=== PATIENT | male | born 1930 | race Caucasian/White ===

== ENCOUNTER 2016-10-23 20:12 | Inpatient (IN) | payer MEDICARE, SELFPAY ==
[2016-10-23 20:54] LABS: AUTOMATED EOSINOPHIL 0.1 % (0-5); AUTOMATED LYMPH 8.1 % (17-44); AUTOMATED MONOCYTE 8.2 % (3-10); AUTOMATED NEUTROPHIL 82.6 % (45-76); MPV 8.6 fL (7.4-10.4)
--- NOTE | 2016-10-23 20:56 | DIRPT ---
CLINICAL DATA: Cough, shortness of breath for 5 days. Sharp left chest pain. EXAM: CHEST 2 VIEW COMPARISON: 10/23/2016 FINDINGS: Peribronchial thickening. Heart is upper limits normal in size. Previously seen possible early infiltrate at the left base has improved. No confluent opacity or effusion. No acute bony abnormality. Bilateral shoulder replacements noted. IMPRESSION: Bronchitic changes. Electronically Signed By: Vadim Aguila M.D. On: 10/23/2016 20:54
[2016-10-23 20:59] LABS: PARTIAL THROMB. TIME 30.3 SEC (22-35); PT-INR 1.1
[2016-10-23 21:06] LABS: BLOOD UREA NITROGEN 37 MG/DL (9-20); CALC CORRECTED 8.6 MG/DL (8.4-10.2); CALCIUM 8.5 MG/DL (8.4-10.2); CALCULATED OSMOLALITY 264 MOs/Kg (270-290); CHLORIDE 94 mEq/L (98-107); GLUCOSE 141 MG/DL (70-99); SODIUM LEVEL 131 mEq/L (137-146); TOTAL PROTEIN 7.3 G/DL (6.3-8.2)
[2016-10-23] MEDS ORDERED: CEFTRIAXONE 1 GM in D5W 100 ML IV ONE (21:42)
[2016-10-23] MEDS ORDERED: AZITHROMYCIN 500 MG in D5W 250 ML IV ONE (21:42)
[2016-10-23] MEDS ORDERED: NS 500 ML IV ONE (21:43)
[2016-10-23] MEDS ORDERED: Albuterol/Ipratropium Neb 3 ML NEB NEB ONE (21:43)
[2016-10-23] MEDS ORDERED: MORPHINE 4 MG/ML INJECTION IV ONE (21:50)
[2016-10-23] MEDS ORDERED: PROMETHAZINE 25 MG/ML VIAL IV ONE (21:50)
[2016-10-23 22:20] LABS: ALLEN'S TEST PASS; BEb 0.3 (+/- 2); TCO2 27.4 MMOL/L (23-27)
[2016-10-23 22:21] LABS: ABG Draw Site Right Radial
--- NOTE | 2016-10-23 23:06 | EDPRACDOC ---
- General Information Mode Of Arrival: Car - History of Present Illness Onset: 3 DAYS HPI: PT PRESENTS TODAY WITH 3 DAYS OF COUGH/CONGESTION, WEAKNESS AND SUBJECTIVE FEVER AT HOME. PT SEEN DR. CHOPRA TODAY AND GIVEN KENALOG INJECTION AND LEVAQUIN. PT STATES HE WENT HOME AND WAS TOO WEAK TO WALK. PT STATES CHEST WALL PAIN, FATIGUE, MAYNARD, AND NAUSEA. Shortness of Breath: Moderate Relevant History: Reports: COPD, Heart Failure (CHF) Cough: Reports: Non-productive Ear Symptoms: Reports: None SOB Worsens with: Reports: Exertion, Coughing, MAYNARD SOB Improves with: Reports: Rest Associated Signs and symptoms: Reports: Cough, Fever, Nausea <Megan Pearl - Last Filed: 10/23/16 23:04> <Gilbert Maynard - Last Filed: 10/23/16 23:12> - General Information Chief Complaint: Chest Pain Stated Complaint: CHEST PAIN; SHOB Time Seen by Provider: 10/23/16 21:27 Home Medications: Home Medications Gabapentin [Neurontin] 300 mg PO TID 10/25/12 Terazosin [Hytrin] 1 mg PO HS 05/03/14 Ferrous Sulfate [Iron] 325 mg PO BID 07/05/14 HydrALAZINE (Cardiovascular) [Apresoline] 50 mg PO QID 07/05/14 POTASSIUM CHLORIDE Tablet [K-DUR 20 mEq Tablet*] 20 meq PO DAILY 07/05/14 Fluticasone/Salmeterol [Advair 500-50 Diskus] 1 inh INH BID PRN 08/20/14 CloNIDine (Antihypertensive) [Catapres] 0.3 mg PO BID 12/31/14 Pantoprazole Sodium [Protonix] 40 mg PO DAILY 01/30/15 Insulin Aspart [Novolog] 0 units SQ .SLIDING SCALE WMEAL 07/11/15 Metoprolol Tartrate [Lopressor] 75 mg PO BID 07/11/15 Omeprazole 20 mg PO BID 07/11/15 Tamsulosin HCl [Flomax] 0.4 mg PO DAILY 07/11/15 Dutasteride [Avodart] 0.5 mg PO DAILY #30 capsule 07/16/15 Furosemide [Lasix] 40 mg PO BID #120 tab 07/16/15 Ascorbic Acid [Vitamin C] 1,000 mg PO DAILY 10/23/16 Insulin Glargine,Hum.rec.anlog [Toujeo Solostar] 12 unit SQ QAM 10/23/16 Levofloxacin [Levaquin] 750 mg PO DAILY 10/23/16 Lorazepam 0.5 mg PO QHS PRN 10/23/16 Morphine Sulfate [Morphine Sulfate ER] 15 mg PO TID 10/23/16 Vitamin E Mixed [Vitamin E] 1,000 unit PO DAILY 10/23/16 Allergies/Adverse Reactions: Allergies Allergy/AdvReac Type Severity Reaction Status Date / Time Penicillins Allergy Mild Nausea/Vomi Verified 07/11/15 07:17 [facility] Past Medical History - History Reviewed Yes Nurses notes reviewed and agree except as marked - Patient Medical History Neurological History: Denies: Cerebrovascular Accident Cardiac History: Reports: Atrial Fibrillation, Hypertension (HCVD), Congestive Heart Failure (diastolic dysfunction), Cardiac Catheterization (6 TIMES), Hypercholesterolemia, Valvular Heart Disease (SEVERE AORTIC STENOSIS) Respiratory History: Reports: Cough, Pneumonia, Emphysema, Pulmonary Embolism. Denies: Asthma, COPD GI/ History: Reports: Renal Disease (CKD-III), Gastroesophageal Reflux Musculoskeletal History: Reports: Arthritis, Osteoarthritis Psychological History: Reports: Anxiety. Denies: Substance Use Disorder Systemic History: Reports: Anemia (chronic disease), Diabetes. Denies: Cancer Surgical History: Reports: Angioplasty, Cardiac Catheterization (6 TIMES), Hernia Surgery (UMBILICAL & INGUINAL), Other (prostate x2,back surgery,left tympanoplasty, bilat. shoulder replacements) - Family Medical History Reports: Hypertension (Father), Diabetes (Father), Stroke (FATHER). Denies: Cancer, Cardiac Disorders - Social Medical History Smoking Status: Never smoker Social History: Denies: Substance Use Disorder <Megan Pearl - Last Filed: 10/23/16 23:04> EDM Review of Systems - Review of Systems ROS Negative Except as Marked: Yes All systems reviewed and were negative except as marked Constitutional: Fever, Fatigue, Weakness Eyes: No Symptoms Reported Ears: No Symptoms Reported Throat: No Symptoms Reported Nose: No Symptoms Reported Respiratory: Cough, Shortness of Breath, Wheezing Cardiovascular: No Symptoms Reported Gastrointestinal: Nausea Neurological: No Symptoms Reported Musculoskeletal: Chestwall Integumentary: No Symptoms Reported <Megan Pearl - Last Filed: 10/23/16 23:04> - Physical Exam Constitutional: Alert (Awake), No apparent distress Oriented to: Time, Person, Place Last recorded Vital Signs: Last Vital Signs Temp 98.4 F 10/23/16 20:20 Pulse 73 10/23/16 22:26 Resp 16 10/23/16 22:26 BP 187/83 H 10/23/16 22:26 Pulse Ox 97 10/23/16 22:26 Oxygen Pulse Oxygen Saturation 97 O2 Device Nasal Cannula Oxygen Flow Rate 2 Fraction of Inspired Oxygen ( FIO2) - HEENT Head: Normal Eye Exam: Normal Neck: Normal, Denies Pain, Midline - Respiratory/Cardiovascular Respiratory: Diminished, Rhonchi Cardiovascular: Irregular, Systolic murmur - GI Auscultation: Normal Palpation: Normal Tenderness: Non tender - Musculoskeletal Back: Normal Extremities: Normal - Integumentary Skin: Normal Lymphatics: Normal - Neurologic Cerebellar: Normal Mood Description: Normal Thought: Coherent Perception: Normal <Megan Pearl - Last Filed: 10/23/16 23:04> - Physical Exam Last recorded Vital Signs: Last Vital Signs Temp 98.4 F 10/23/16 20:20 Pulse 73 10/23/16 22:26 Resp 16 10/23/16 22:26 BP 187/83 H 10/23/16 22:26 Pulse Ox 97 10/23/16 22:26 Oxygen Pulse Oxygen Saturation 97 O2 Device Nasal Cannula Oxygen Flow Rate 2 Fraction of Inspired Oxygen ( FIO2) <Gilbert Maynard - Last Filed: 10/23/16 23:12> ED SOB MDM - Re-evaluation Re-evaluation 1 Re-evaluation Time: 23:07 Re-evaluation: PT FEELING BETTER AFTER MULTIPLE MEDICATIONS AND IS NOW RESTING. NOTED HYPOXIA. - Results Result Diagrams: 10/23/16 20:32 10/23/16 20:32 Results: WBC 4.2 xk/uL (3.8-10.8) 10/23/16 20:32 RBC 3.27 xM/uL (4.70-6.10) L 10/23/16 20:32 Hgb 10.7 g/dL (14.0-18.0) L 10/23/16 20:32 Hct 30.8 % (42-52) L 10/23/16 20:32 MCV 94 fL (80-94) 10/23/16 20:32 MCH 32.8 pg (27-32) H 10/23/16 20:32 MCHC 34.8 g/dl (33-36) 10/23/16 20:32 RDW 13.7 % (11.5-14.5) 10/23/16 20:32 Plt Count 111 xk/uL (130-400) L 10/23/16 20:32 MPV 8.6 fL (7.4-10.4) 10/23/16 20:32 Neut % (Auto) 82.6 % (45-76) H 10/23/16 20:32 Lymph % (Auto) 8.1 % (17-44) L 10/23/16 20:32 Moca % (Auto) 8.2 % (3-10) 10/23/16 20:32 Eos % (Auto) 0.1 % (0-5) 10/23/16 20:32 Baso % (Auto) 1.0 % (0-2) 10/23/16 20:32 Absolute Neuts (auto) 3.44 xk/uL (1.7-8.2) 10/23/16 20:32 Absolute Lymphs (auto) 0.34 xk/uL (0.65-4.75) L 10/23/16 20:32 PT 11.6 SEC (9.2-11.2) H 10/23/16 20:32 INR 1.1 10/23/16 20:32 APTT 30.3 SEC (22-35) 10/23/16 20:32 Puncture Site Right radial 10/23/16 22:17 pH 7.370 pH UNITS (7.35-7.45) 10/23/16 22:17 pCO2 45.0 mmHg (35-45) 10/23/16 22:17 pO2 54.0 mmHg (80-100) L 10/23/16 22:17 HCO3 26.0 MMOL/L (22-26) 10/23/16 22:17 Total CO2 27.4 MMOL/L (23-27) H 10/23/16 22:17 Base Excess 0.3 (+/- 2) 10/23/16 22:17 FiO2 % 21 10/23/16 22:17 Specimen Drawn By Rakma 10/23/16 22:17 Sodium 131 mEq/L (137-146) L 10/23/16 20:32 Potassium 3.7 mEq/L (3.5-5.1) 10/23/16 20:32 Chloride 94 mEq/L (98-107) L 10/23/16 20:32 Carbon Dioxide 24 mMOL/L (22-33) 10/23/16 20:32 Anion Gap 17 mEq/L (8-16) H 10/23/16 20:32 BUN 37 MG/DL (9-20) H 10/23/16 20:32 Creatinine 1.80 MG/DL (0.66-1.25) H 10/23/16 20:32 Estimated GFR (MDRD) 36 mL/min (>=60) L 10/23/16 20:32 Glucose 141 MG/DL (70-99) H 10/23/16 20:32 Calculated Osmolality 264 MOs/Kg (270-290) L 10/23/16 20:32 Calcium 8.5 MG/DL (8.4-10.2) 10/23/16 20:32 Corrected Calcium 8.6 MG/DL (8.4-10.2) 10/23/16 20:32 Total Bilirubin 0.7 MG/DL (0.2-1.3) 10/23/16 20:32 AST 28 IU/L (17-59) 10/23/16 20:32 ALT 22 IU/L (21-72) 10/23/16 20:32 Alkaline Phosphatase 93 IU/L (50-160) 10/23/16 20:32 Troponin I 0.03 ng/mL (<.04) 10/23/16 20:32 Iga-O-Ilprnicaoll Pept 86054 pg/mL (0-1800) H 10/23/16 20:32 Total Protein 7.3 G/DL (6.3-8.2) 10/23/16 20:32 Albumin 3.9 G/DL (3.5-5.0) 10/23/16 20:32 Lab Results 10/23/16 10/23/16 10/23/16 22:17 20:32 20:32 WBC 4.2 RBC 3.27 L Hgb 10.7 L Hct 30.8 L MCV 94 MCH 32.8 H MCHC 34.8 RDW 13.7 Plt Count 111 L MPV 8.6 Neut % (Auto) 82.6 H Lymph % (Auto) 8.1 L Moca % (Auto) 8.2 Eos % (Auto) 0.1 Baso % (Auto) 1.0 Absolute Neuts (auto) 3.44 Absolute Lymphs (auto) 0.34 L PT 11.6 H INR 1.1 APTT 30.3 Puncture Site Right radial pH 7.370 pCO2 45.0 pO2 54.0 L HCO3 26.0 Total CO2 27.4 H Base Excess 0.3 FiO2 % 21 Specimen Drawn By Rakma Sodium Potassium Chloride Carbon Dioxide Anion Gap BUN Creatinine Estimated GFR (MDRD) Glucose Calculated Osmolality Calcium Corrected Calcium Total Bilirubin AST ALT Alkaline Phosphatase Troponin I Sum-Q-Qnnpoooauvi Pept Total Protein Albumin 10/23/16 20:32 WBC RBC Hgb Hct MCV MCH MCHC RDW Plt Count MPV Neut % (Auto) Lymph % (Auto) Moca % (Auto) Eos % (Auto) Baso % (Auto) Absolute Neuts (auto) Absolute Lymphs (auto) PT INR APTT Puncture Site pH pCO2 pO2 HCO3 Total CO2 Base Excess FiO2 % Specimen Drawn By Sodium 131 L Potassium 3.7 Chloride 94 L Carbon Dioxide 24 Anion Gap 17 H BUN 37 H Creatinine 1.80 H Estimated GFR (MDRD) 36 L Glucose 141 H Calculated Osmolality 264 L Calcium 8.5 Corrected Calcium 8.6 Total Bilirubin 0.7 AST 28 ALT 22 Alkaline Phosphatase 93 Troponin I 0.03 Uxn-N-Fnoramjatfb Pept 81440 H Total Protein 7.3 Albumin 3.9 - EKG EKG #1 EKG Time: 20:25 -: Yes EKG interpreted by me Rate: bpm: 92 Rhythm: Afib Block: LBBB Hypertrophy: None ST: Normal <Megan Pearl - Last Filed: 10/23/16 23:04> - Results Result Diagrams: 10/23/16 20:32 10/23/16 20:32 Results: WBC 4.2 xk/uL (3.8-10.8) 10/23/16 20:32 RBC 3.27 xM/uL (4.70-6.10) L 10/23/16 20:32 Hgb 10.7 g/dL (14.0-18.0) L 10/23/16 20:32 Hct 30.8 % (42-52) L 10/23/16 20:32 MCV 94 fL (80-94) 10/23/16 20:32 MCH 32.8 pg (27-32) H 10/23/16 20:32 MCHC 34.8 g/dl (33-36) 10/23/16 20:32 RDW 13.7 % (11.5-14.5) 10/23/16 20:32 Plt Count 111 xk/uL (130-400) L 10/23/16 20:32 MPV 8.6 fL (7.4-10.4) 10/23/16 20:32 Neut % (Auto) 82.6 % (45-76) H 10/23/16 20:32 Lymph % (Auto) 8.1 % (17-44) L 10/23/16 20:32 Moca % (Auto) 8.2 % (3-10) 10/23/16 20: Eos % (Auto) 0.1 % (0-5) 10/23/16 20:32 Baso % (Auto) 1.0 % (0-2) 10/23/16 20:32 Absolute Neuts (auto) 3.44 xk/uL (1.7-8.2) 10/23/16 20:32 Absolute Lymphs (auto) 0.34 xk/uL (0.65-4.75) L 10/23/16 20:32 PT 11.6 SEC (9.2-11.2) H 10/23/16 20:32 INR 1.1 10/23/16 20:32 APTT 30.3 SEC (22-35) 10/23/16 20:32 Puncture Site Right radial 10/23/16 22:17 pH 7.370 pH UNITS (7.35-7.45) 10/23/16 22:17 pCO2 45.0 mmHg (35-45) 10/23/16 22:17 pO2 54.0 mmHg (80-100) L 10/23/16 22:17 HCO3 26.0 MMOL/L (22-26) 10/23/16 22:17 Total CO2 27.4 MMOL/L (23-27) H 10/23/16 22:17 Base Excess 0.3 (+/- 2) 10/23/16 22:17 FiO2 % 21 10/23/16 22:17 Specimen Drawn By Rakma 10/23/16 22:17 Sodium 131 mEq/L (137-146) L 10/23/16 20:32 Potassium 3.7 mEq/L (3.5-5.1) 10/23/16 20:32 Chloride 94 mEq/L (98-107) L 10/23/16 20:32 Carbon Dioxide 24 mMOL/L (22-33) 10/23/16 20:32 Anion Gap 17 mEq/L (8-16) H 10/23/16 20:32 BUN 37 MG/DL (9-20) H 10/23/16 20:32 Creatinine 1.80 MG/DL (0.66-1.25) H 10/23/16 20:32 Estimated GFR (MDRD) 36 mL/min (>=60) L 10/23/16 20:32 Glucose 141 MG/DL (70-99) H 10/23/16 20:32 Calculated Osmolality 264 MOs/Kg (270-290) L 10/23/16 20:32 Calcium 8.5 MG/DL (8.4-10.2) 10/23/16 20:32 Corrected Calcium 8.6 MG/DL (8.4-10.2) 10/23/16 20:32 Total Bilirubin 0.7 MG/DL (0.2-1.3) 10/23/16 20:32 AST 28 IU/L (17-59) 10/23/16 20:32 ALT 22 IU/L (21-72) 10/23/16 20:32 Alkaline Phosphatase 93 IU/L (50-160) 10/23/16 20:32 Troponin I 0.03 ng/mL (<.04) 10/23/16 20:32 Dwp-F-Susdbxynduf Pept 05923 pg/mL (0-1800) H 10/23/16 20:32 Total Protein 7.3 G/DL (6.3-8.2) 10/23/16 20:32 Albumin 3.9 G/DL (3.5-5.0) 10/23/16 20:32 Lab Results 10/23/16 10/23/16 10/23/16: 20:32 20:32 WBC 4.2 RBC 3.27 L Hgb 10.7 L Hct 30.8 L MCV 94 MCH 32.8 H MCHC 34.8 RDW 13.7 Plt Count 111 L MPV 8.6 Neut % (Auto) 82.6 H Lymph % (Auto) 8.1 L Moca % (Auto) 8.2 Eos % (Auto) 0.1 Baso % (Auto) 1.0 Absolute Neuts (auto) 3.44 Absolute Lymphs (auto) 0.34 L PT 11.6 H INR 1.1 APTT 30.3 Puncture Site Right radial pH 7.370 pCO2 45.0 pO2 54.0 L HCO3 26.0 Total CO2 27.4 H Base Excess 0.3 FiO2 % 21 Specimen Drawn By Rakma Sodium Potassium Chloride Carbon Dioxide Anion Gap BUN Creatinine Estimated GFR (MDRD) Glucose Calculated Osmolality Calcium Corrected Calcium Total Bilirubin AST ALT Alkaline Phosphatase Troponin I Dns-A-Ftxavombqdg Pept Total Protein Albumin 10/23/16 20:32 WBC RBC Hgb Hct MCV MCH MCHC RDW Plt Count MPV Neut % (Auto) Lymph % (Auto) Moca % (Auto) Eos % (Auto) Baso % (Auto) Absolute Neuts (auto) Absolute Lymphs (auto) PT INR APTT Puncture Site pH pCO2 pO2 HCO3 Total CO2 Base Excess FiO2 % Specimen Drawn By Sodium 131 L Potassium 3.7 Chloride 94 L Carbon Dioxide 24 Anion Gap 17 H BUN 37 H Creatinine 1.80 H Estimated GFR (MDRD) 36 L Glucose 141 H Calculated Osmolality 264 L Calcium 8.5 Corrected Calcium 8.6 Total Bilirubin 0.7 AST 28 ALT 22 Alkaline Phosphatase 93 Troponin I 0.03 Ydl-Q-Iemtieczqvl Pept 94846 H Total Protein 7.3 Albumin 3.9 <Gilbert Maynard - Last Filed: 10/23/16 23:12> - Departure Disposition: Admit IP To This Hospital <Megan Pearl - Last Filed: 10/23/16 23:04> - Departure Disposition: Admit IP To This Hospital Decision to Admit Time: 23:11 Decision to admit date: 10/23/16 Decision to admit: from ED - Physician Consulted Hospitalist Time Called: 23:12 Provider Called: Arya Friedman Time Machine Setter Supervisor Returned Call: 23:12 <Gilbert Maynard - Last Filed: 10/23/16 23:12> - Departure Condition: Stable Final Diagnosis: Acute respiratory failure with hypoxia, Renal insufficiency Atrial fibrillation Qualifiers: Atrial fibrillation type: chronic Qualified Code(s): I48.2 - Chronic atrial fibrillation Pneumonia Qualifiers: Pneumonia type: due to unspecified organism Laterality: left Lung location: lower lobe of lung Qualified Code(s): J18.1 - Lobar pneumonia, unspecified organism
[2016-10-23] MEDS ORDERED: Albuterol/Ipratropium Neb 3 ML NEB NEB PRN (23:53)
--- NOTE | 2016-10-24 00:01 | HISTPHYS ---
- Chief Complaint sob, cough - History of Present Illness 86 yowm brought to emergency room early on today for evaluation worsening difficulties breathing. reports that Mr. robles has developed chest cold about 7 days ago. He has initially had cough productive of small amount of foamy sputum. Over the ensuing days he has developed progressive worsening dyspnea chest tightness and persistent wheezing. He has developed cough productive thick yellowish greenish sputum. His appetite and p.o. intake have declined he has been feeling profoundly weak and very fatigued. Given persistence of his symptoms he has finally decided to see PCP and was started on antibiotics. In early afternoon his care condition has worsened patient has found himself gasping for air and decided to be evaluated emergency room. Upon arrival in ED patient was in severe respiratory distress hypoxic tachypneic and tachycardic. His PaO2 was 54, chest x-ray showed left-sided pneumonia and medical consultation was phoned in for inpatient treatment. - Medical History Cardiac History: Reports: Atrial Fibrillation, Hypertension (HCVD), Congestive Heart Failure (diastolic dysfunction), Cardiac Catheterization (6 TIMES), Hypercholesterolemia, Valvular Heart Disease (SEVERE AORTIC STENOSIS) Respiratory History: Reports: Cough, Pneumonia, Emphysema, Pulmonary Embolism. Denies: Asthma, COPD GI/ History: Reports: Renal Disease (CKD-III), Gastroesophageal Reflux, BPH Musculoskeletal History: Reports: Arthritis, Osteoarthritis Systemic History: Reports: Anemia (chronic disease), Diabetes. Denies: Cancer Neurological History: Reports: Dementia. Denies: Cerebrovascular Accident Psychological History: Reports: Anxiety. Denies: Substance Use Disorder - Surgical History Reports: Appendectomy, Cholecystectomy, Angioplasty, Cardiac Catheterization (6 TIMES), Hernia Surgery (UMBILICAL & INGUINAL), Other (prostate x2,back surgery, left tympanoplasty, bilat. shoulder replacements) - Medictions/Allergies Allergies Penicillins Allergy (Mild, Verified 07/11/15 07:17) Nausea/Vomiting Current Medication List: Reviewed Home Medications Gabapentin [Neurontin] 300 mg PO TID 10/25/12 Terazosin [Hytrin] 1 mg PO HS 05/03/14 Ferrous Sulfate [Iron] 325 mg PO BID 07/05/14 HydrALAZINE (Cardiovascular) [Apresoline] 50 mg PO QID 07/05/14 POTASSIUM CHLORIDE Tablet [K-DUR 20 mEq Tablet*] 20 meq PO DAILY 07/05/14 Fluticasone/Salmeterol [Advair 500-50 Diskus] 1 inh INH BID PRN 08/20/14 CloNIDine (Antihypertensive) [Catapres] 0.3 mg PO BID 12/31/14 Pantoprazole Sodium [Protonix] 40 mg PO DAILY 01/30/15 Insulin Aspart [Novolog] 0 units SQ .SLIDING SCALE WMEAL 07/11/15 Metoprolol Tartrate [Lopressor] 75 mg PO BID 07/11/15 Omeprazole 20 mg PO BID 07/11/15 Tamsulosin HCl [Flomax] 0.4 mg PO DAILY 07/11/15 Dutasteride [Avodart] 0.5 mg PO DAILY #30 capsule 07/16/15 Furosemide [Lasix] 40 mg PO BID #120 tab 07/16/15 Ascorbic Acid [Vitamin C] 1,000 mg PO DAILY 10/23/16 Insulin Glargine,Hum.rec.anlog [Toujeo Solostar] 12 unit SQ QAM 10/23/16 Levofloxacin [Levaquin] 750 mg PO DAILY 10/23/16 Lorazepam 0.5 mg PO QHS PRN 10/23/16 Morphine Sulfate [Morphine Sulfate ER] 15 mg PO TID 10/23/16 Vitamin E Mixed [Vitamin E] 1,000 unit PO DAILY 10/23/16 - Family History Reports: Hypertension (Father), Diabetes (Father), Stroke (FATHER). Denies: Cancer, Cardiac Disorders - Social History Travel Outside of [place] in the Last 3 Months?: No Lives: With Family Smoking Status: Never smoker Social History: Denies: Substance Use Disorder - Review of Systems Constitutional: Chills, Fever, Diaphoresis, Fatigue, Loss of Appetite, Weakness , Weight loss Eyes: No Symptoms Reported Ears: No Symptoms Reported Nose: No Symptoms Reported Mouth: No Symptoms Reported Throat/Neck: No Symptoms Reported Respiratory: Brassy Cough, Shortness of Breath, Wheezing, Sputum, Pleurisy, Dyspnea Cardiovascular: Palpitations Gastrointestinal: Nausea, Constipation, Heartburn Genitourinary: Nocturia Neurological: Gait Difficulty, Numbness, Weakness Musculoskeletal:: Arthritis Integumentary: No Symptoms Reported Allergic/Immunologic: No Symptoms Reported Hematologic: No Symptoms Reported Endocrine: No Symptoms Reported Psychiatric: No Symptoms Reported - Physical Exam Vital Signs: Initial Vitals Temperature 98.4 F 10/23/16 20:20 Pulse Rate 87 10/23/16 20:20 Respiratory Rate 18 10/23/16 20:20 Blood Pressure 178/78 10/23/16 20:20 Pulse Oxygen Saturation 91 10/23/16 20:20 Constitutional: Confused, Distress, Restless, Other (Visibly short of breath, unable to answer questions in full sentences) Oriented to: Time, Person, Place - HEENT Head: Normal Eye: Normal Oropharynx: Normal ENT EAC: Normal TMJ: Normal Nose: No Symptoms Reported Respiratory: Accessory Muscle Use, Diminished, Rhonchi, Tachypnea, Wheezes Cardiovascular: Normal, Irregular, Systolic murmur - GI Auscultation: Normal Palpation: Normal Tenderness: Non tender Rectal Exam: Deferred - Exam Deferred: Yes - Musculoskeletal Back: No Palpable Step-off Extremities: Cyanosis, Edema Spine: limited range of motion - Integumentary Skin: Normal, Warm, Dry Lymphatics: Normal - Neurologic Memory Impaired: Short-term Motor Function: Abnormal Cranial Nerve: Normal Cerebellar: Ataxia Mood Description: Anxious Thought: Coherent Perception: Normal - Focused CV Perfusion Exam Vital Signs: Last Vital Signs Temp 98.4 F 10/23/16 20:20 Pulse 86 10/23/16 23:41 Resp 16 10/23/16 23:41 BP 181/80 H 10/23/16 23:41 Pulse Ox 98 10/23/16 23:41 - Diagnostic Findings Allergies Penicillins Allergy (Mild, Verified 07/11/15 07:17) Nausea/Vomiting Last Vital Signs Temp 98.4 F 10/23/16 20:20 Pulse 86 10/23/16 23:41 Resp 16 10/23/16 23:41 BP 181/80 H 10/23/16 23:41 Pulse Ox 98 10/23/16 23:41 10/23/16 20:32 10/23/16 20:32 Abnormal Lab Results 10/23/16 10/23/16 10/23/16 20:32 20:32 20:32 RBC 3.27 L Hgb 10.7 L Hct 30.8 L MCH 32.8 H Plt Count 111 L Neut % (Auto) 82.6 H Lymph % (Auto) 8.1 L Absolute Lymphs (auto) 0.34 L PT 11.6 H pO2 Total CO2 Sodium 131 L Chloride 94 L Anion Gap 17 H BUN 37 H Creatinine 1.80 H Estimated GFR (MDRD) 36 L Glucose 141 H Calculated Osmolality 264 L Jer-R-Kfnsuwzbzrq Pept 17805 H 10/23/16 22:17 RBC Hgb Hct MCH Plt Count Neut % (Auto) Lymph % (Auto) Absolute Lymphs (auto) PT pO2 54.0 L Total CO2 27.4 H Sodium Chloride Anion Gap BUN Creatinine Estimated GFR (MDRD) Glucose Calculated Osmolality Qzg-H-Nnkjfkumsuz Pept Patient Name: ALESHIA ROBLES LOC: ED : 1930 AGE: 86 Order Date:10/23/16 Date of Service: Report # [id number] Ord Physician: Paddy Arora DO Exam # [id number] Emergency Physician: Provider,ER Exam(s): [id number] RAD/DG CHEST 2V CLINICAL DATA: Cough, shortness of breath for 5 days. Sharp left chest pain. EXAM: CHEST 2 VIEW COMPARISON: 10/23/2016 FINDINGS: Peribronchial thickening. Heart is upper limits normal in size. Previously seen possible early infiltrate at the left base has improved. No confluent opacity or effusion. No acute bony abnormality. Bilateral shoulder replacements noted. IMPRESSION: Bronchitic changes. Electronically Signed By: Vadim Aguila M.D. On: 10/23/2016 20:54 Electronically Signed By: Vadim Aguila MD Electronically EKG: afib - Assessment (1) Acute respiratory failure with hypoxia J96.01 - ACUTE RESPIRATORY FAILURE WITH HYPOXIA Acute Present on Admission: Yes Patient will be admitted to monitor bed. Supplemental O2 will be provided. Monitor pulmonary status closely. PA and lateral chest x-ray and ABG will be obtained the morning. (2) Pneumonia J18.9 - PNEUMONIA, UNSPECIFIED ORGANISM Acute Present on Admission: Yes Qualifiers: Pneumonia type: due to unspecified organism Laterality: left Lung location: lower lobe of lung Qualified Code(s): J18.1 - Lobar pneumonia, unspecified organism Patient will receive IV antibiotics in the form of Rocephin and Zithromax. Monitor cultures and adjust antibiotics according (3) COPD exacerbation J44.1 - CHRONIC OBSTRUCTIVE PULMONARY DISEASE W (ACUTE) EXACERBATION Acute Present on Admission: Yes Patient will receive nebulized bronchodilators and IV steroids. Continue Advair (4) Atrial fibrillation I48.91 - UNSPECIFIED ATRIAL FIBRILLATION Chronic Present on Admission: Yes Qualifiers: Atrial fibrillation type: chronic Qualified Code(s): I48.2 - Chronic atrial fibrillation Continue beta-kalyan and aspirin keep K more than 4 magnesium more than 2 (5) Anemia D64.9 - ANEMIA, UNSPECIFIED Chronic Present on Admission: Yes Qualifiers: Anemia type: unspecified type Qualified Code(s): D64.9 - Anemia, unspecified Monitor counts transfuse as needed indicated (6) Diabetes mellitus E11.9 - TYPE 2 DIABETES MELLITUS WITHOUT COMPLICATIONS Chronic Present on Admission: Yes Qualifiers: Diabetes mellitus complication status: with neurologic complications Continue Lantus and ADA diet and sliding scale regular insulin (7) Diastolic CHF I50.30 - UNSPECIFIED DIASTOLIC (CONGESTIVE) HEART FAILURE Chronic Present on Admission: Yes Continue diuretic and salt restriction. Monitor weight and fluid balance. Seems compensated. (8) HTN (hypertension) I10 - ESSENTIAL (PRIMARY) HYPERTENSION Chronic Qualifiers: Hypertension type: essential hypertension Qualified Code(s): I10 - Essential (primary) hypertension Stable on meds keep SBP less than 140. (9) CKD (chronic kidney disease) stage 3, GFR 30-59 ml/min N18.3 - CHRONIC KIDNEY DISEASE, STAGE 3 (MODERATE) Chronic Present on Admission: Yes Maintain hydration avoid any nephrotoxins. Monitor BMP (10) GERD (gastroesophageal reflux disease) K21.9 - GASTRO-ESOPHAGEAL REFLUX DISEASE WITHOUT ESOPHAGITIS Chronic Present on Admission: Yes Qualifiers: Esophagitis presence: without esophagitis Qualified Code(s): K21.9 - Gastro -esophageal reflux disease without esophagitis Continue PPI Case Care Discussed with: Patient, Family, Nursing Staff, Respiratory Therapy Total Time: 65 min . Critical Care: Yes Code: 291
[2016-10-24] MEDS: Albuterol/Ipratropium Neb 3 ML NEB NEB SCH ×4 (01:16→20:36)
[2016-10-24] MEDS: METHYLPREDNISOLONE 125 MG/2 ML VIAL IV SCH ×5 (01:21→22:52)
[2016-10-24] MEDS: TERAZOSIN 1 MG CAP PO SCH ×2 (01:23→20:57)
[2016-10-24] MEDS: METOPROLOL TARTRATE 50 MG TAB PO SCH ×3 (01:23→20:57)
[2016-10-24] MEDS: GABAPENTIN 300 MG CAP PO SCH ×4 (01:23→20:59)
[2016-10-24] MEDS: ENOXAPARIN 40 MG/0.4 ML PFS SQ SCH ×2 (01:24→20:59)
[2016-10-24] MEDS: NS 1,000 ML IV SCH ×2 (01:40→20:51)
[2016-10-24] MEDS ORDERED: Vaccine Screening Complete SCH (02:00)
[2016-10-24 04:19] LABS: ALLEN'S TEST PASS; BEb 2.4 (+/- 2); TCO2 28.5 MMOL/L (23-27)
[2016-10-24 04:52] LABS: ABG Draw Site Left Brachial
[2016-10-24 04:58] LABS: BLOOD UREA NITROGEN 38 MG/DL (9-20); CALCIUM 8.7 MG/DL (8.4-10.2); CALCULATED OSMOLALITY 271 MOs/Kg (270-290); CHLORIDE 92 mEq/L (98-107); GLUCOSE 227 MG/DL (70-99); SODIUM LEVEL 132 mEq/L (137-146)
[2016-10-24 05:02] LABS: AUTOMATED BASOPHIL 0.2 % (0-2); AUTOMATED LYMPH 6.5 % (17-44); AUTOMATED MONOCYTE 6.2 % (3-10); AUTOMATED NEUTROPHIL 87.1 % (45-76); MPV 9.4 fL (7.4-10.4)
[2016-10-24] MEDS ORDERED: GABAPENTIN 300 MG CAP PO SCH (06:00)
[2016-10-24] MEDS: MORPHINE 15 MG EXT REL TAB PO SCH ×3 (06:16→21:01)
[2016-10-24] MEDS: PANTOPRAZOLE 40 MG TAB PO SCH (06:16)
[2016-10-24] MEDS ORDERED: FLUTICASONE/SALMETEROL 500/50 DISKUS INH PRN (08:00)
--- NOTE | 2016-10-24 08:53 | DIRPT ---
CLINICAL DATA: 86-year-old male with respiratory failure. Recent cough and shortness of Breath. Initial encounter. EXAM: CHEST 2 VIEW COMPARISON: 10/23/2016 and earlier. FINDINGS: Bilateral shoulder arthroplasties again noted. Stable cardiomegaly and mediastinal contours. Calcified aortic atherosclerosis. Increased reticular density in the left mid lung compared to prior studies. No other acute or confluent pulmonary opacity. No pulmonary edema or pleural effusion. Osteopenia. No acute osseous abnormality identified. Visualized tracheal air column is within normal limits. IMPRESSION: Chronic hyperinflation with acute increased reticular opacity in the left mid lung compatible with acute infectious exacerbation. No pleural effusion. Electronically Signed By: Shahab Garcia M.D. On: 10/24/2016 08:50
[2016-10-24] MEDS ORDERED: Non-Formulary Medication ITEM (Ferrous Sulfate [Iron] 325 MG) PO SCH (09:00)
[2016-10-24] MEDS ORDERED: INSULIN GLARGINE HUM REC ANLOG 20 UNIT SQ SCH (09:00)
[2016-10-24] MEDS ORDERED: Non-Formulary Medication ITEM (Ascorbic Acid [Vitamin C] 1,000 MG) PO SCH (09:00)
[2016-10-24] MEDS ORDERED: [UNRECOGNIZED DRUG - OTHER] SQ SCH (09:00)
[2016-10-24] MEDS ORDERED: VITAMIN E MIXED 1000 UNIT PO SCH (09:00)
[2016-10-24] MEDS ORDERED: METOPROLOL TARTRATE 50 MG TAB PO SCH (09:00)
[2016-10-24] MEDS: FUROSEMIDE 40 MG TAB PO SCH ×2 (09:18→17:01)
[2016-10-24] MEDS: Aspirin (Orange Enteric Coated) 325 mg tab PO SCH (09:18)
[2016-10-24] MEDS: DUTASTERIDE 0.5 MG CAP PO SCH (09:18)
[2016-10-24] MEDS: TAMSULOSIN HCL 0.4 MG CAP PO SCH (09:19)
[2016-10-24] MEDS: GLARGINE INSULIN (LANTUS) 100 UNITS/ML PEN SQ SCH (09:20)
--- NOTE | 2016-10-24 09:21 | GENMEDPROG ---
Chief Complaint: Feels a little better. Still very congested. Denies chest pain. Notes Reviewed: Yes Events from last night noted and discussed with Clinical Staff Current Medication List: Reviewed Currently: Reports: Cough, Wheezing, MAYNARD, SOB. Denies: Nausea and Vomiting, Abdominal Pain, Chest Pain - Physical Examination Vital Signs and I&O: Last Vital Signs Temp 98.4 F 10/24/16 08:15 Pulse 91 10/24/16 08:15 Resp 18 10/24/16 08:15 BP 155/82 10/24/16 08:15 Pulse Ox 95 10/24/16 08:15 Oxygen Pulse Oxygen Saturation 95 O2 Device Nasal Cannula Oxygen Flow Rate 2 Fraction of Inspired Oxygen ( FIO2) Intake & Output 10/21/16 10/22/16 10/23/16 10/24/16 23:59 23:59 23:59 23:59 Intake Total 1049 Output Total 950 Balance 99 Patient's weight 87.146 kg General: Alert, Oriented x3, Cooperative, Moderate distress. negative: Well appearing, Well nourished HEENT: Normal, PERRLA, EOMI Neck: Non-tender, Full range of motion, Normal Trachea alignment, Normal inspection Lymphatics: Normal Respiratory: Accessory Muscle Use, Diminished, Rhonchi, Tachypnea, Wheezes Cardiovascular: Regular rate and rhythm, No Gallops,Rubs/Murmurs GI: Normal bowel sounds, Soft, Non tender, No hepatospenomegaly Extremities/Musculoskeletal: Normal pulses Skin: Warm,Dry and Intact, No rashes, No breakdown Neurological: Normal speech, Strength at 5/5 X4 ext, Normal tone, Cranial nerves 3-12 NL Psych/Mental Status: Appropriate, Normal Affect, Cooperative Lab/DI/Studies Reviewed: Laboratory Results - last 24 hr 10/23/16 10/23/16 10/23/16 20:32 20:32 20:32 WBC 4.2 RBC 3.27 L Hgb 10.7 L Hct 30.8 L MCV 94 MCH 32.8 H MCHC 34.8 RDW 13.7 Plt Count 111 L MPV 8.6 Neut % (Auto) 82.6 H Lymph % (Auto) 8.1 L [place] % (Auto) 8.2 Eos % (Auto) 0.1 Baso % (Auto) 1.0 Absolute Neuts (auto) 3.44 Absolute Lymphs (auto) 0.34 L PT 11.6 H INR 1.1 APTT 30.3 Puncture Site pH pCO2 pO2 HCO3 Total CO2 Base Excess FiO2 % Specimen Drawn By Sodium 131 L Potassium 3.7 Chloride 94 L Carbon Dioxide 24 Anion Gap 17 H BUN 37 H Creatinine 1.80 H Estimated GFR (MDRD) 36 L Glucose 141 H POC Capillary Glucose Hemoglobin A1c Calculated Osmolality 264 L Calcium 8.5 Corrected Calcium 8.6 Magnesium Total Bilirubin 0.7 AST 28 ALT 22 Alkaline Phosphatase 93 Troponin I 0.03 [id number]-[id number] Pept 52714 H Total Protein 7.3 Albumin 3.9 TSH 10/23/16 10/23/16 10/23/16 20:32 22:17 23:43 WBC RBC Hgb Hct MCV MCH MCHC RDW Plt Count MPV Neut % (Auto) Lymph % (Auto) [place] % (Auto) Eos % (Auto) Baso % (Auto) Absolute Neuts (auto) Absolute Lymphs (auto) PT INR APTT Puncture Site Right radial pH 7.370 pCO2 45.0 pO2 54.0 L HCO3 26.0 Total CO2 27.4 H Base Excess 0.3 FiO2 % 21 Specimen Drawn By Rakma Sodium Potassium Chloride Carbon Dioxide Anion Gap BUN Creatinine Estimated GFR (MDRD) Glucose POC Capillary Glucose Hemoglobin A1c 6.1 H Calculated Osmolality Calcium Corrected Calcium Magnesium Total Bilirubin AST ALT Alkaline Phosphatase Troponin I 0.04 [id number]-Rlyxwjqbajc Pept Total Protein Albumin TSH 10/23/16 10/24/16 10/24/16 23:53 01:12 02:20 WBC RBC Hgb Hct MCV MCH MCHC RDW Plt Count MPV Neut % (Auto) Lymph % (Auto) [place] % (Auto) Eos % (Auto) Baso % (Auto) Absolute Neuts (auto) Absolute Lymphs (auto) PT INR APTT Puncture Site pH pCO2 pO2 HCO3 Total CO2 Base Excess FiO2 % Specimen Drawn By Sodium Potassium Chloride Carbon Dioxide Anion Gap BUN Creatinine Estimated GFR (MDRD) Glucose POC Capillary Glucose 247 H Hemoglobin A1c Calculated Osmolality Calcium Corrected Calcium Magnesium Total Bilirubin AST ALT Alkaline Phosphatase Troponin I 0.05 [id number]-Gsqvsitfsyy Pept Total Protein Albumin TSH 0.77 10/24/16 10/24/16 10/24/16 02:20 02:20 04:10 WBC 4.4 RBC 3.11 L Hgb 10.1 L Hct 29.6 L MCV 95 H MCH 32.6 H MCHC 34.3 RDW 13.3 Plt Count 108 L MPV 9.4 Neut % (Auto) 87.1 H Lymph % (Auto) 6.5 L [place] % (Auto) 6.2 Eos % (Auto) 0.0 Baso % (Auto) 0.2 Absolute Neuts (auto) 3.83 Absolute Lymphs (auto) 0.26 L PT INR APTT Puncture Site Left brachial pH 7.420 pCO2 42.0 pO2 77.0 L HCO3 27.2 H Total CO2 28.5 H Base Excess 2.4 H FiO2 % 2lpm/nc Specimen Drawn By [facility] Sodium 132 L Potassium 3.5 Chloride 92 L Carbon Dioxide 27 Anion Gap 17 H BUN 38 H Creatinine 1.70 H Estimated GFR (MDRD) 39 L Glucose 227 H POC Capillary Glucose Hemoglobin A1c Calculated Osmolality 271 Calcium 8.7 Corrected Calcium Magnesium 2.10 Total Bilirubin AST ALT Alkaline Phosphatase Troponin I Ssm-F-Okxsmgetzca Pept Total Protein Albumin TSH 10/24/16 05:40 WBC RBC Hgb Hct MCV MCH MCHC RDW Plt Count MPV Neut % (Auto) Lymph % (Auto) [place] % (Auto) Eos % (Auto) Baso % (Auto) Absolute Neuts (auto) Absolute Lymphs (auto) PT INR APTT Puncture Site pH pCO2 pO2 HCO3 Total CO2 Base Excess FiO2 % Specimen Drawn By Sodium Potassium Chloride Carbon Dioxide Anion Gap BUN Creatinine Estimated GFR (MDRD) Glucose POC Capillary Glucose 235 H Hemoglobin A1c Calculated Osmolality Calcium Corrected Calcium Magnesium Total Bilirubin AST ALT Alkaline Phosphatase Troponin I Bgc-Q-Wqleytyogjb Pept Total Protein Albumin TSH - Assessment (1) Acute respiratory failure with hypoxia Acute J96.01 - ACUTE RESPIRATORY FAILURE WITH HYPOXIA Comment/Plan: Still very congested and short of breath. Appears severely ill. Chest x-ray this morning confirms left middle and left lower lobe infiltrate. Continue antibiotics and pulmonary toilet (2) COPD exacerbation Acute J44.1 - CHRONIC OBSTRUCTIVE PULMONARY DISEASE W (ACUTE) EXACERBATION Comment/Plan: IV steroids, nebulizer treatments and pulmonary toilet (3) Pneumonia Acute J18.9 - PNEUMONIA, UNSPECIFIED ORGANISM Qualifiers: Pneumonia type: due to unspecified organism Aspiration pneumonia type: A Laterality: left Lung location: lower lobe of lung Qualified Code(s): J18.1 - Lobar pneumonia, unspecified organism Comment/Plan: Left lower lobe. Very congested. Continue antibiotics. Encourage incentive spirometry and flutter use. Activity as able. (4) Atrial fibrillation Chronic I48.91 - UNSPECIFIED ATRIAL FIBRILLATION Qualifiers: Atrial fibrillation type: chronic Qualified Code(s): I48.2 - Chronic atrial fibrillation Comment/Plan: Rate stable. Continue home medications. (5) Renal insufficiency Acute N28.9 - DISORDER OF KIDNEY AND URETER, UNSPECIFIED Comment/Plan: Mild. Slightly better today at 1.7. (6) CKD (chronic kidney disease) stage 3, GFR 30-59 ml/min Chronic N18.3 - CHRONIC KIDNEY DISEASE, STAGE 3 (MODERATE) Comment/Plan: Maintain hydration avoid any nephrotoxins. Monitor BMP (7) GERD (gastroesophageal reflux disease) Chronic K21.9 - GASTRO-ESOPHAGEAL REFLUX DISEASE WITHOUT ESOPHAGITIS Qualifiers: Esophagitis presence: without esophagitis Qualified Code(s): K21.9 - Gastro -esophageal reflux disease without esophagitis Comment/Plan: Continue PPI (8) Diabetes mellitus Chronic E11.9 - TYPE 2 DIABETES MELLITUS WITHOUT COMPLICATIONS Qualifiers: Diabetes mellitus type: type 2 Diabetes mellitus complication status: with neurologic complications Diabetes mellitus complication detail: with unspecified neuropathy Diabetic retinopathy severity: D Proliferative retinopathy type: P Diabetes mellitus macular edema: D Diabetes mellitus termite exterminator helper insulin use: with termite exterminator helper use Laterality: L Chronic kidney disease stage: C Qualified Code(s): E11.40 - Type 2 diabetes mellitus with diabetic neuropathy, unspecified; Z79.4 - joint terminal attack controller (current) use of insulin Comment/Plan: Continue Lantus and ADA diet and sliding scale regular insulin (9) Diastolic CHF Chronic I50.30 - UNSPECIFIED DIASTOLIC (CONGESTIVE) HEART FAILURE Qualifiers: Congestive heart failure chronicity: C Comment/Plan: Continue diuretic and salt restriction. Monitor weight and fluid balance. Seems compensated. (10) HTN (hypertension) Chronic I10 - ESSENTIAL (PRIMARY) HYPERTENSION Qualifiers: Hypertension type: essential hypertension Qualified Code(s): I10 - Essential (primary) hypertension Comment/Plan: Stable on meds keep SBP less than 140. Case Care Discussed with: Patient, Nursing Staff, Physical Therapy, Resource Management, Respiratory Therapy, Hole Filler Total Time: 45 minutes Critical Care: Yes
[2016-10-24] MEDS: GUAIFENESIN 600 MG LA TAB PO SCH ×2 (09:23→20:58)
[2016-10-24] MEDS: ASCORBIC ACID 500 MG TAB PO SCH (12:07)
[2016-10-24] MEDS: VITAMIN E 400 UNITS/CAP CAP PO SCH (12:08)
[2016-10-24] MEDS: POTASSIUM CHLORIDE 20 MEQ TAB PO SCH (12:09)
[2016-10-24] MEDS: FERROUS SULFATE 324 MG TAB PO SCH ×2 (12:09→17:01)
[2016-10-24] MEDS ORDERED: DEXTROSE 25 GM/50 ML PFS IV PRN (13:48)
[2016-10-24] MEDS ORDERED: GLUCAGON 1 MG VIAL SQ PRN (13:48)
[2016-10-24] MEDS ORDERED: GLUCOSE (ORAL GEL) 15 GM TUBE PO PRN (13:48)
[2016-10-24] MEDS: REGULAR INSULIN 100 UNITS/ML - 3 ML VIAL SQ SCH ×2 (17:00→22:49)
[2016-10-24] MEDS: CEFTRIAXONE 1 GM in D5W 100 ML IV SCH (21:00)
[2016-10-24] MEDS ORDERED: TERAZOSIN 1 MG CAP PO SCH (21:00)
[2016-10-24] MEDS: AZITHROMYCIN 500 MG in D5W 250 ML IV SCH (22:49)
[2016-10-25] MEDS: Albuterol/Ipratropium Neb 3 ML NEB NEB SCH ×4 (02:20→20:50)
[2016-10-25] MEDS: MORPHINE 15 MG EXT REL TAB PO SCH ×3 (05:52→20:44)
[2016-10-25] MEDS: GABAPENTIN 300 MG CAP PO SCH ×3 (05:53→20:45)
[2016-10-25] MEDS: PANTOPRAZOLE 40 MG TAB PO SCH (05:53)
[2016-10-25] MEDS: REGULAR INSULIN 100 UNITS/ML - 3 ML VIAL SQ SCH ×4 (05:53→20:43)
[2016-10-25] MEDS: METHYLPREDNISOLONE 125 MG/2 ML VIAL IV SCH ×3 (05:53→20:41)
[2016-10-25] MEDS: TAMSULOSIN HCL 0.4 MG CAP PO SCH (08:53)
[2016-10-25] MEDS: Aspirin (Orange Enteric Coated) 325 mg tab PO SCH (08:53)
[2016-10-25] MEDS: DUTASTERIDE 0.5 MG CAP PO SCH (08:53)
[2016-10-25] MEDS: GUAIFENESIN 600 MG LA TAB PO SCH ×2 (08:53→20:45)
[2016-10-25] MEDS: FUROSEMIDE 40 MG TAB PO SCH ×2 (08:53→16:12)
[2016-10-25] MEDS: METOPROLOL TARTRATE 50 MG TAB PO SCH ×2 (08:54→20:44)
[2016-10-25] MEDS: GLARGINE INSULIN (LANTUS) 100 UNITS/ML PEN SQ SCH (08:55)
[2016-10-25] MEDS: FERROUS SULFATE 324 MG TAB PO SCH ×2 (12:13→16:12)
[2016-10-25] MEDS: POTASSIUM CHLORIDE 20 MEQ TAB PO SCH (12:13)
[2016-10-25] MEDS: ASCORBIC ACID 500 MG TAB PO SCH (12:13)
[2016-10-25] MEDS: VITAMIN E 400 UNITS/CAP CAP PO SCH (12:13)
--- NOTE | 2016-10-25 13:13 | GENMEDPROG ---
Chief Complaint: Still significant distress and congestion. Some improvement in wheezing today. Work of breathing is slightly better. Notes Reviewed: Yes Events from last night noted and discussed with Clinical Staff Current Medication List: Reviewed Currently: Reports: Cough, Wheezing, MAYNARD, SOB. Denies: Nausea and Vomiting, Abdominal Pain, Chest Pain DVT Prophylaxis: Yes - Physical Examination Vital Signs and I&O: Last Vital Signs Temp 97.8 F 10/25/16 12:48 Pulse 101 10/25/16 12:48 Resp 12 10/25/16 12:48 BP 156/78 10/25/16 12:48 Pulse Ox 98 10/25/16 12:48 Oxygen Pulse Oxygen Saturation 98 O2 Device Nasal Cannula Oxygen Flow Rate 2 Fraction of Inspired Oxygen ( FIO2) Intake & Output 10/22/16 10/23/16 10/24/16 10/25/16 23:59 23:59 23:59 23:59 Intake Total 2849 1214 Output Total 2850 1900 Balance -1 -686 Patient's weight 87.146 kg 87.77 kg General: Alert, Oriented x3, Cooperative, Moderate distress. negative: Well appearing, Well nourished HEENT: Normal, PERRLA, EOMI, Anicteric Sclera Neck: Non-tender, Full range of motion, Normal Trachea alignment, Normal inspection Lymphatics: Normal Respiratory: Accessory Muscle Use, Diminished, Rhonchi, Wheezes Cardiovascular: Regular rate and rhythm, No Gallops,Rubs/Murmurs GI: Normal bowel sounds, Soft, Non tender, No hepatospenomegaly Extremities/Musculoskeletal: Normal pulses Skin: Warm,Dry and Intact, No rashes, No breakdown Neurological: Normal speech, Strength at 5/5 X4 ext, Normal tone, Cranial nerves 3-12 NL Psych/Mental Status: Appropriate, Normal Affect, Cooperative Lab/DI/Studies Reviewed: Laboratory Results - last 24 hr 10/23/16 10/24/16 10/24/16 23:50 11:32 16:14 POC Capillary Glucose 279 H 271 H Ur Random Microalbumin 22.8 10/24/16 10/25/16 10/25/16 20:57 05:15 12:27 POC Capillary Glucose 177 H 192 H 286 H Ur Random Microalbumin - Assessment (1) Acute respiratory failure with hypoxia Acute J96.01 - ACUTE RESPIRATORY FAILURE WITH HYPOXIA Comment/Plan: Remains acutely ill though slightly better than yesterday. Less congested and wheezing today. Continue IV antibiotics, IV steroids, nebulizer treatments and pulmonary toilet. Encourage activity as tolerated. (2) COPD exacerbation Acute J44.1 - CHRONIC OBSTRUCTIVE PULMONARY DISEASE W (ACUTE) EXACERBATION Comment/Plan: IV steroids, nebulizer treatments and pulmonary toilet (3) Pneumonia Acute J18.9 - PNEUMONIA, UNSPECIFIED ORGANISM Qualifiers: Pneumonia type: due to unspecified organism Aspiration pneumonia type: A Laterality: left Lung location: lower lobe of lung Qualified Code(s): J18.1 - Lobar pneumonia, unspecified organism Comment/Plan: Left lower lobe. Very congested. Continue antibiotics. Encourage incentive spirometry and flutter use. Activity as able. (4) Atrial fibrillation Chronic I48.91 - UNSPECIFIED ATRIAL FIBRILLATION Qualifiers: Atrial fibrillation type: chronic Qualified Code(s): I48.2 - Chronic atrial fibrillation Comment/Plan: Rate stable. Continue home medications. (5) Renal insufficiency Acute N28.9 - DISORDER OF KIDNEY AND URETER, UNSPECIFIED Comment/Plan: Mild. Slightly better today at 1.7. (6) CKD (chronic kidney disease) stage 3, GFR 30-59 ml/min Chronic N18.3 - CHRONIC KIDNEY DISEASE, STAGE 3 (MODERATE) Comment/Plan: Maintain hydration avoid any nephrotoxins. Monitor BMP (7) GERD (gastroesophageal reflux disease) Chronic K21.9 - GASTRO-ESOPHAGEAL REFLUX DISEASE WITHOUT ESOPHAGITIS Qualifiers: Esophagitis presence: without esophagitis Qualified Code(s): K21.9 - Gastro -esophageal reflux disease without esophagitis Comment/Plan: Continue PPI (8) Diabetes mellitus Chronic E11.9 - TYPE 2 DIABETES MELLITUS WITHOUT COMPLICATIONS Qualifiers: Diabetes mellitus type: type 2 Diabetes mellitus complication status: with neurologic complications Diabetes mellitus complication detail: with unspecified neuropathy Diabetic retinopathy severity: D Proliferative retinopathy type: P Diabetes mellitus macular edema: D Diabetes mellitus termite control representative insulin use: with nursing home use Laterality: L Chronic kidney disease stage: C Qualified Code(s): E11.40 - Type 2 diabetes mellitus with diabetic neuropathy, unspecified; Z79.4 - residential (current) use of insulin Comment/Plan: Continue Lantus and ADA diet and sliding scale regular insulin (9) Diastolic CHF Chronic I50.30 - UNSPECIFIED DIASTOLIC (CONGESTIVE) HEART FAILURE Qualifiers: Congestive heart failure chronicity: C Comment/Plan: Continue diuretic and salt restriction. Monitor weight and fluid balance. Seems compensated. (10) HTN (hypertension) Chronic I10 - ESSENTIAL (PRIMARY) HYPERTENSION Qualifiers: Hypertension type: essential hypertension Qualified Code(s): I10 - Essential (primary) hypertension Comment/Plan: Stable on meds keep SBP less than 140. Case Care Discussed with: Patient, Family (Discussed with at length), Physical Therapy, Resource Management, Respiratory Therapy, Steam Finisher
[2016-10-25] MEDS: NS 1,000 ML IV SCH ×3 (13:53→23:45)
[2016-10-25] MEDS: ENOXAPARIN 40 MG/0.4 ML PFS SQ SCH (16:12)
[2016-10-25] MEDS: TERAZOSIN 1 MG CAP PO SCH (20:44)
[2016-10-25] MEDS: LORAZEPAM 0.5 MG TAB PO PRN (20:45)
[2016-10-25] MEDS: CEFTRIAXONE 1 GM in D5W 100 ML IV SCH (22:37)
[2016-10-25] MEDS: AZITHROMYCIN 500 MG in D5W 250 ML IV SCH (23:44)
[2016-10-26] MEDS: Albuterol/Ipratropium Neb 3 ML NEB NEB SCH ×4 (02:50→19:51)
[2016-10-26] MEDS: METHYLPREDNISOLONE 125 MG/2 ML VIAL IV SCH ×3 (05:00→19:37)
[2016-10-26] MEDS: MORPHINE 15 MG EXT REL TAB PO SCH ×3 (05:15→19:36)
[2016-10-26] MEDS: GABAPENTIN 300 MG CAP PO SCH ×3 (05:16→19:38)
[2016-10-26] MEDS: PANTOPRAZOLE 40 MG TAB PO SCH (05:16)
[2016-10-26 05:20] LABS: MPV 8.8 fL (7.4-10.4)
[2016-10-26 05:54] LABS: BLOOD UREA NITROGEN 56 MG/DL (9-20); CALCIUM 8.3 MG/DL (8.4-10.2); CALCULATED OSMOLALITY 273 MOs/Kg (270-290); CHLORIDE 94 mEq/L (98-107); GLUCOSE 168 MG/DL (70-99); SODIUM LEVEL 131 mEq/L (137-146)
[2016-10-26] MEDS: REGULAR INSULIN 100 UNITS/ML - 3 ML VIAL SQ SCH ×4 (06:37→23:10)
[2016-10-26] MEDS: NS 1,000 ML IV SCH (06:37)
[2016-10-26] MEDS ORDERED: CHAPSTICK LIP BALM ONE (06:40)
[2016-10-26 08:01] LABS: SEG NEUTROPHIL 82 % (45-76); TOTAL CELL COUNT 100
[2016-10-26] MEDS: Aspirin (Orange Enteric Coated) 325 mg tab PO SCH (08:23)
[2016-10-26] MEDS: FUROSEMIDE 40 MG TAB PO SCH ×2 (08:23→15:41)
[2016-10-26] MEDS: DUTASTERIDE 0.5 MG CAP PO SCH (08:23)
[2016-10-26] MEDS: TAMSULOSIN HCL 0.4 MG CAP PO SCH (08:23)
[2016-10-26] MEDS: GUAIFENESIN 600 MG LA TAB PO SCH ×2 (08:23→19:38)
[2016-10-26] MEDS: GLARGINE INSULIN (LANTUS) 100 UNITS/ML PEN SQ SCH (08:24)
[2016-10-26] MEDS: METOPROLOL TARTRATE 50 MG TAB PO SCH ×2 (08:24→19:37)
[2016-10-26] MEDS: POTASSIUM CHLORIDE 20 MEQ TAB PO SCH (11:52)
[2016-10-26] MEDS: VITAMIN E 400 UNITS/CAP CAP PO SCH (11:53)
[2016-10-26] MEDS: FERROUS SULFATE 324 MG TAB PO SCH ×2 (11:53→17:32)
[2016-10-26] MEDS: ASCORBIC ACID 500 MG TAB PO SCH (11:53)
--- NOTE | 2016-10-26 13:45 | GENMEDPROG ---
Chief Complaint: Slowly better. Still with moderate wheezing but improved airflow. Denies chest pain. Notes Reviewed: Yes Events from last night noted and discussed with Clinical Staff Current Medication List: Reviewed Currently: Reports: Cough, Wheezing, MAYNARD, SOB. Denies: Nausea and Vomiting, Abdominal Pain, Chest Pain DVT Prophylaxis: Yes - Physical Examination Vital Signs and I&O: Last Vital Signs Temp 97.5 F 10/26/16 13:00 Pulse 110 10/26/16 13:00 Resp 20 10/26/16 13:00 BP 116/66 10/26/16 13:00 Pulse Ox 94 10/26/16 13:00 Oxygen Pulse Oxygen Saturation 94 O2 Device Nasal Cannula Oxygen Flow Rate 2 Fraction of Inspired Oxygen ( FIO2) Intake & Output 10/23/16 10/24/16 10/25/16 10/26/16 23:59 23:59 23:59 23:59 Intake Total 2849 2805 948 Output Total 2850 2650 930 Balance -1 155 18 Patient's weight 87.146 kg 87.77 kg 88.042 kg General: Alert, Oriented x3, Cooperative, Moderate distress. negative: Well appearing, Well nourished HEENT: Normal, PERRLA, EOMI, Anicteric Sclera Neck: Non-tender, Full range of motion, Normal Trachea alignment, Normal inspection Lymphatics: Normal Respiratory: Accessory Muscle Use, Diminished, Rhonchi, Wheezes Cardiovascular: Regular rate and rhythm, No Gallops,Rubs/Murmurs GI: Normal bowel sounds, Soft, Non tender, No hepatospenomegaly Extremities/Musculoskeletal: Normal pulses Skin: Warm,Dry and Intact, No rashes, No breakdown Neurological: Normal speech, Strength at 5/5 X4 ext, Normal tone, Cranial nerves 3-12 NL Psych/Mental Status: Appropriate, Normal Affect, Cooperative Lab/DI/Studies Reviewed: Laboratory Results - last 24 hr 10/25/16 10/25/16 10/26/16 16:11 19:53 05:05 WBC RBC Hgb Hct MCV MCH MCHC RDW Plt Count MPV Neut % (Auto) Lymph % (Auto) [place] % (Auto) Eos % (Auto) Baso % (Auto) Absolute Neuts (auto) Absolute Lymphs (auto) Seg Neuts % (Manual) Band Neutrophils % Lymphocytes % (Manual) Monocytes % (Manual) Absolute Neutrophils Absolute Lymphocytes Vacuolated Neuts Toxic Granulation Platelet Estimate RBC Morphology Sodium 131 L Potassium 4.0 Chloride 94 L Carbon Dioxide 26 Anion Gap 15 BUN 56 H Creatinine 1.60 H Estimated GFR (MDRD) 41 L Glucose 168 H POC Capillary Glucose 172 H 126 H Calculated Osmolality 273 Calcium 8.3 L 10/26/16 10/26/16 10/26/16 05:05 05:41 11:07 WBC 8.0 RBC 2.66 L Hgb 8.8 L D Hct 25.1 L MCV 94 MCH 33.1 H MCHC 35.1 RDW 14.1 Plt Count 109 L MPV 8.8 Neut % (Auto) Cancelled Lymph % (Auto) Cancelled [place] % (Auto) Cancelled Eos % (Auto) Cancelled Baso % (Auto) Cancelled Absolute Neuts (auto) Cancelled Absolute Lymphs (auto) Cancelled Seg Neuts % (Manual) 82 H Band Neutrophils % 11 H Lymphocytes % (Manual) 6 L Monocytes % (Manual) 1 Absolute Neutrophils 7.44 Absolute Lymphocytes 0.48 L Vacuolated Neuts 1+ Toxic Granulation Tr Platelet Estimate Dec RBC Morphology 1+ polychrom Sodium Potassium Chloride Carbon Dioxide Anion Gap BUN Creatinine Estimated GFR (MDRD) Glucose POC Capillary Glucose 201 H 214 H Calculated Osmolality Calcium - Assessment (1) Acute respiratory failure with hypoxia Acute J96.01 - ACUTE RESPIRATORY FAILURE WITH HYPOXIA Comment/Plan: Slowly improving. Still with congestion and wheezing. However clinically he feels some better. Increase activity. (2) COPD exacerbation Acute J44.1 - CHRONIC OBSTRUCTIVE PULMONARY DISEASE W (ACUTE) EXACERBATION Comment/Plan: IV steroids, nebulizer treatments and pulmonary toilet (3) Pneumonia Acute J18.9 - PNEUMONIA, UNSPECIFIED ORGANISM Qualifiers: Pneumonia type: due to unspecified organism Aspiration pneumonia type: A Laterality: left Lung location: lower lobe of lung Qualified Code(s): J18.1 - Lobar pneumonia, unspecified organism Comment/Plan: Left lower lobe. Very congested. Continue antibiotics. Encourage incentive spirometry and flutter use. Activity as able. (4) Atrial fibrillation Chronic I48.91 - UNSPECIFIED ATRIAL FIBRILLATION Qualifiers: Atrial fibrillation type: chronic Qualified Code(s): I48.2 - Chronic atrial fibrillation Comment/Plan: Rate stable. Continue home medications. (5) Renal insufficiency Acute N28.9 - DISORDER OF KIDNEY AND URETER, UNSPECIFIED Comment/Plan: Mild. Creatinine stable (6) CKD (chronic kidney disease) stage 3, GFR 30-59 ml/min Chronic N18.3 - CHRONIC KIDNEY DISEASE, STAGE 3 (MODERATE) Comment/Plan: Maintain hydration avoid any nephrotoxins. Monitor BMP (7) GERD (gastroesophageal reflux disease) Chronic K21.9 - GASTRO-ESOPHAGEAL REFLUX DISEASE WITHOUT ESOPHAGITIS Qualifiers: Esophagitis presence: without esophagitis Qualified Code(s): K21.9 - Gastro -esophageal reflux disease without esophagitis Comment/Plan: Continue PPI (8) Diabetes mellitus Chronic E11.9 - TYPE 2 DIABETES MELLITUS WITHOUT COMPLICATIONS Qualifiers: Diabetes mellitus type: type 2 Diabetes mellitus complication status: with neurologic complications Diabetes mellitus complication detail: with unspecified neuropathy Diabetic retinopathy severity: D Proliferative retinopathy type: P Diabetes mellitus macular edema: D Diabetes mellitus outdoor emergency care technician insulin use: with outdoor emergency care technician use Laterality: L Chronic kidney disease stage: C Qualified Code(s): E11.40 - Type 2 diabetes mellitus with diabetic neuropathy, unspecified; Z79.4 - residential (current) use of insulin Comment/Plan: Continue Lantus and ADA diet and sliding scale regular insulin (9) Diastolic CHF Chronic I50.30 - UNSPECIFIED DIASTOLIC (CONGESTIVE) HEART FAILURE Qualifiers: Congestive heart failure chronicity: C Comment/Plan: Continue diuretic and salt restriction. Monitor weight and fluid balance. Seems compensated. (10) HTN (hypertension) Chronic I10 - ESSENTIAL (PRIMARY) HYPERTENSION Qualifiers: Hypertension type: essential hypertension Qualified Code(s): I10 - Essential (primary) hypertension Comment/Plan: Stable on meds keep SBP less than 140. Case Care Discussed with: Patient, Nursing Staff, Physical Therapy, Resource Management, Respiratory Therapy, Sound Cutter
[2016-10-26] MEDS: LACTULOSE 20 GM/30 ML ORAL SOLN PO PRN ×2 (14:59→17:37)
[2016-10-26] MEDS: ENOXAPARIN 40 MG/0.4 ML PFS SQ SCH (17:31)
[2016-10-26] MEDS: TERAZOSIN 1 MG CAP PO SCH (19:39)
[2016-10-26] MEDS ORDERED: DILTIAZEM 25 MG/5 ML VIAL IV ONE ×2 (20:00→20:30)
[2016-10-26] MEDS: CEFTRIAXONE 1 GM in D5W 100 ML IV SCH (23:48)
[2016-10-26] MEDS: AZITHROMYCIN 500 MG in D5W 250 ML IV SCH (23:48)
[2016-10-27] MEDS ORDERED: FUROSEMIDE 40 MG/4 ML VIAL IV ONE ×2 (00:30→21:30)
[2016-10-27] MEDS: AZITHROMYCIN 500 MG in D5W 250 ML IV SCH (00:39)
[2016-10-27] MEDS: LORAZEPAM 0.5 MG TAB PO PRN ×2 (00:40→20:42)
[2016-10-27 00:45] LABS: ALLEN'S TEST PASS; BEb 0.1 (+/- 2); TCO2 25.9 MMOL/L (23-27)
[2016-10-27 00:46] LABS: ABG Draw Site Right Brachial; ABG Draw Tech BKL
[2016-10-27] MEDS: Albuterol/Ipratropium Neb 3 ML NEB NEB SCH ×4 (01:05→19:48)
[2016-10-27] MEDS: NS 1,000 ML IV SCH (01:26)
--- NOTE | 2016-10-27 01:26 | DIRPT ---
CLINICAL DATA: Acute onset of dyspnea. Initial encounter. EXAM: PORTABLE CHEST 1 VIEW COMPARISON: Chest radiograph performed 10/24/2016 FINDINGS: Significantly worsened left mid lung and mild right basilar airspace opacities are compatible with multifocal pneumonia. Underlying vascular congestion is noted. No pleural effusion or pneumothorax is seen. The cardiomediastinal silhouette is borderline normal in size. No acute osseous abnormalities are identified. Bilateral shoulder arthroplasties are grossly unremarkable in appearance, though incompletely imaged. IMPRESSION: See wound worsened left mid lung and mild right basilar airspace opacities, compatible with multifocal pneumonia. Underlying vascular congestion noted. Electronically Signed By: Yakov Esteban M.D. On: 10/27/2016 01:23
[2016-10-27] MEDS: REGULAR INSULIN 100 UNITS/ML - 3 ML VIAL SQ SCH ×4 (05:52→21:29)
[2016-10-27] MEDS: METHYLPREDNISOLONE 125 MG/2 ML VIAL IV SCH (06:33)
[2016-10-27] MEDS: MORPHINE 15 MG EXT REL TAB PO SCH ×3 (06:33→20:42)
[2016-10-27] MEDS: PANTOPRAZOLE 40 MG TAB PO SCH (06:34)
[2016-10-27] MEDS: GABAPENTIN 300 MG CAP PO SCH ×3 (06:34→20:50)
[2016-10-27] MEDS ORDERED: BENZONATATE 100 MG PERLES PO PRN (06:40)
[2016-10-27] MEDS ORDERED: PROMETHAZINE 25 MG/ML VIAL IV PRN (06:40)
[2016-10-27] MEDS ORDERED: ONDANSETRON HCL 4 MG/2 ML VIAL IV PRN (06:40)
[2016-10-27] MEDS ORDERED: SIMETHICONE 80 MG TAB PO PRN (06:40)
[2016-10-27] MEDS ORDERED: ACETAMINOPHEN 325 MG SUPP PR PRN (06:40)
[2016-10-27] MEDS ORDERED: GUAIFEN 100 MG-DEXTROMETH 10 MG PER 5 ML PO PRN (06:40)
[2016-10-27] MEDS ORDERED: TEMAZEPAM 15 MG CAP PO PRN (06:40)
[2016-10-27] MEDS ORDERED: ACETAMINOPHEN 325 MG/TAB TABLET PO PRN (06:40)
[2016-10-27] MEDS ORDERED: BISACODYL 5 MG TAB PO PRN (06:40)
[2016-10-27] MEDS ORDERED: Docusate Sodium 100 MG CAP PO PRN (06:40)
[2016-10-27] MEDS ORDERED: SENNA CONCENTRATE TAB PO PRN (06:40)
[2016-10-27] MEDS ORDERED: ONDANSETRON HCL 4 MG/2 ML VIAL ONE (06:42)
[2016-10-27] MEDS: GUAIFENESIN 600 MG LA TAB PO SCH ×2 (08:35→20:49)
[2016-10-27] MEDS: TAMSULOSIN HCL 0.4 MG CAP PO SCH (08:36)
[2016-10-27] MEDS: POTASSIUM CHLORIDE 20 MEQ TAB PO SCH (08:36)
[2016-10-27] MEDS: METOPROLOL TARTRATE 50 MG TAB PO SCH ×2 (08:36→20:49)
[2016-10-27] MEDS: ASCORBIC ACID 500 MG TAB PO SCH (08:37)
[2016-10-27] MEDS: Aspirin (Orange Enteric Coated) 325 mg tab PO SCH (08:37)
[2016-10-27] MEDS: VITAMIN E 400 UNITS/CAP CAP PO SCH (08:37)
[2016-10-27] MEDS: FUROSEMIDE 40 MG TAB PO SCH ×2 (08:38→15:12)
[2016-10-27] MEDS: DUTASTERIDE 0.5 MG CAP PO SCH (08:38)
[2016-10-27] MEDS: FERROUS SULFATE 324 MG TAB PO SCH ×2 (08:39→17:10)
[2016-10-27] MEDS: GLARGINE INSULIN (LANTUS) 100 UNITS/ML PEN SQ SCH (08:41)
--- NOTE | 2016-10-27 13:16 | GENMEDPROG ---
Chief Complaint: Feels a little better. Chest x-ray still with persistent extensive pneumonia. Denies chest pain at present. Less wheezing. Notes Reviewed: Yes Events from last night noted and discussed with Clinical Staff Current Medication List: Reviewed Currently: Reports: Cough, Wheezing, MAYNARD, SOB. Denies: Nausea and Vomiting, Abdominal Pain, Chest Pain DVT Prophylaxis: Yes - Physical Examination Vital Signs and I&O: Last Vital Signs Temp 98.2 F 10/27/16 11:40 Pulse 99 10/27/16 12:00 Resp 22 10/27/16 11:40 BP 142/81 10/27/16 11:40 Pulse Ox 98 10/27/16 11:40 Oxygen Pulse Oxygen Saturation 98 O2 Device Nasal Cannula Oxygen Flow Rate 4 Fraction of Inspired Oxygen ( FIO2) Intake & Output 10/24/16 10/25/16 10/26/16 10/27/16 23:59 23:59 23:59 23:59 Intake Total 2849 2805 1368 1204 Output Total 2850 2650 1890 1185 Balance -1 155 -522 19 Patient's weight 87.146 kg 87.77 kg 88.042 kg 89.312 kg General: Alert, Oriented x3, Cooperative, Moderate distress. negative: Well appearing, Well nourished HEENT: Normal, PERRLA, EOMI, Anicteric Sclera Neck: Non-tender, Full range of motion, Normal Trachea alignment, Normal inspection Lymphatics: Normal. negative: Adenopathy Respiratory: Accessory Muscle Use, Diminished, Rhonchi, Wheezes Cardiovascular: Regular rate and rhythm, No Gallops,Rubs/Murmurs GI: Normal bowel sounds, Soft, Non tender, No hepatospenomegaly Extremities/Musculoskeletal: Normal pulses Skin: Warm,Dry and Intact, No rashes, No breakdown Neurological: Normal speech, Strength at 5/5 X4 ext, Normal tone, Cranial nerves 3-12 NL Psych/Mental Status: Appropriate, Normal Affect, Cooperative Lab/DI/Studies Reviewed: Laboratory Results - last 24 hr 10/26/16 10/26/16 10/27/16 16:19 22:27 00:40 Puncture Site Right brachial pH 7.410 pCO2 39.0 pO2 94.0 HCO3 24.7 Total CO2 25.9 Base Excess 0.1 FiO2 % 4 lpm Specimen Drawn By Bkl POC Capillary Glucose 161 H 91 10/27/16 10/27/16 06:25 11:00 Puncture Site pH pCO2 pO2 HCO3 Total CO2 Base Excess FiO2 % Specimen Drawn By POC Capillary Glucose 149 H 273 H - Assessment (1) Acute respiratory failure with hypoxia Acute J96.01 - ACUTE RESPIRATORY FAILURE WITH HYPOXIA Comment/Plan: Still with extensive pneumonia on chest x-ray. Clinically appear some better with less wheezing and less distress. Continue IV antibiotics nebulizer treatments and pulmonary toilet. Encourage spirometry and activity as tolerated. (2) COPD exacerbation Acute J44.1 - CHRONIC OBSTRUCTIVE PULMONARY DISEASE W (ACUTE) EXACERBATION Comment/Plan: IV steroids, nebulizer treatments and pulmonary toilet (3) Pneumonia Acute J18.9 - PNEUMONIA, UNSPECIFIED ORGANISM Qualifiers: Pneumonia type: due to unspecified organism Aspiration pneumonia type: A Laterality: left Lung location: lower lobe of lung Qualified Code(s): J18.1 - Lobar pneumonia, unspecified organism Comment/Plan: Chest x-ray with multifocal pneumonia. Remains congested but with less wheezing. Continue IV antibiotics, nebulizer treatments and pulmonary toilet. Increase activity as tolerated (4) Atrial fibrillation Chronic I48.91 - UNSPECIFIED ATRIAL FIBRILLATION Qualifiers: Atrial fibrillation type: chronic Qualified Code(s): I48.2 - Chronic atrial fibrillation Comment/Plan: Rate stable. Continue home medications. (5) Renal insufficiency Acute N28.9 - DISORDER OF KIDNEY AND URETER, UNSPECIFIED Comment/Plan: Mild. Creatinine stable (6) CKD (chronic kidney disease) stage 3, GFR 30-59 ml/min Chronic N18.3 - CHRONIC KIDNEY DISEASE, STAGE 3 (MODERATE) Comment/Plan: Maintain hydration avoid any nephrotoxins. Monitor BMP (7) GERD (gastroesophageal reflux disease) Chronic K21.9 - GASTRO-ESOPHAGEAL REFLUX DISEASE WITHOUT ESOPHAGITIS Qualifiers: Esophagitis presence: without esophagitis Qualified Code(s): K21.9 - Gastro -esophageal reflux disease without esophagitis Comment/Plan: Continue PPI (8) Diabetes mellitus Chronic E11.9 - TYPE 2 DIABETES MELLITUS WITHOUT COMPLICATIONS Qualifiers: Diabetes mellitus type: type 2 Diabetes mellitus complication status: with neurologic complications Diabetes mellitus complication detail: with unspecified neuropathy Diabetic retinopathy severity: D Proliferative retinopathy type: P Diabetes mellitus macular edema: D Diabetes mellitus shelter insulin use: with intermodal customer service use Laterality: L Chronic kidney disease stage: C Qualified Code(s): E11.40 - Type 2 diabetes mellitus with diabetic neuropathy, unspecified; Z79.4 - correction (current) use of insulin Comment/Plan: Continue Lantus and ADA diet and sliding scale regular insulin (9) Diastolic CHF Chronic I50.30 - UNSPECIFIED DIASTOLIC (CONGESTIVE) HEART FAILURE Qualifiers: Congestive heart failure chronicity: C Comment/Plan: Continue diuretic and salt restriction. Monitor weight and fluid balance. Seems compensated. (10) HTN (hypertension) Chronic I10 - ESSENTIAL (PRIMARY) HYPERTENSION Qualifiers: Hypertension type: essential hypertension Qualified Code(s): I10 - Essential (primary) hypertension Comment/Plan: Stable on meds keep SBP less than 140. Case Care Discussed with: Patient, Nursing Staff, Physical Therapy, Resource Management
[2016-10-27] MEDS: DILTIAZEM 30 MG TAB PO SCH ×2 (13:33→17:10)
[2016-10-27] MEDS: METHYLPREDNISOLONE 40 MG/1 ML VIAL IV SCH (15:12)
[2016-10-27] MEDS: ENOXAPARIN 40 MG/0.4 ML PFS SQ SCH (17:10)
[2016-10-27] MEDS ORDERED: METOPROLOL 5 MG/5 ML SDV IV ONE ×2 (17:39→18:00)
[2016-10-27] MEDS ORDERED: Medication Special Instructions SCH (18:00)
[2016-10-27] MEDS ORDERED: DILTIAZEM 25 MG/5 ML VIAL IV ONE ×3 (19:00→21:30)
[2016-10-27] MEDS: NITROGLYCERINE 0.4 MG TAB SL ONE ×2 (20:45→20:50)
[2016-10-27] MEDS: TERAZOSIN 1 MG CAP PO SCH (20:48)
[2016-10-27] MEDS: NITROGLYCERINE 0.4 MG TAB SL PRN ×2 (20:50→20:55)
--- NOTE | 2016-10-27 21:02 | GENMEDPROG ---
Chief Complaint: CRITICAL CARE NOTE 10/27/162109 S: NURSE CALLED, RAPID RESPONSE. PATIENT CALLED OUT WITH SUDDEN SEVERE SUBSTERNAL CHEST PAIN. ASSOCIATED WITH SHORTNESS OF BREATH. HEART RATE ELEVATED INITIALLY IN THE 140S AND NOW UP TO 180S. PATIENT REPORTS: Sudden chest pain, severe. Substernal. Pressure. 10/10. Alleviated by nothing and exacerbated by nothing. Associated symptoms: shortness of breath. wheezing. Lower extremity edema. Treatments: Was given Metoprolol, IV cardizem. Subjective Note: CRITICAL CARE NOTE 10/27/162109 S: NURSE CALLED, RAPID RESPONSE. PATIENT CALLED OUT WITH SUDDEN SEVERE SUBSTERNAL CHEST PAIN. ASSOCIATED WITH SHORTNESS OF BREATH. HEART RATE ELEVATED INITIALLY IN THE 140S AND NOW UP TO 180S. O2 SATS DECREASED AND REQUIRED MORE O2 SUPPLEMENTATION. PATIENT REPORTS: Sudden chest pain, severe. Substernal. Pressure. 10/10. Alleviated by nothing and exacerbated by nothing. Associated symptoms: shortness of breath. wheezing. Lower extremity edema. Treatments: Was given Metoprolol, IV Cardizem. Notes Reviewed: Yes Events from last night noted and discussed with Clinical Staff Current Medication List: Reviewed Currently: Reports: Cough, Wheezing, MAYNARD, SOB, Chest Pain. Denies: Nausea and Vomiting, Abdominal Pain DVT Prophylaxis: Yes - Physical Examination Vital Signs and I&O: Last Vital Signs Temp 97.6 F 10/27/16 19:30 Pulse 107 10/27/16 19:50 Resp 20 10/27/16 19:30 BP 120/75 10/27/16 20:49 Pulse Ox 98 10/27/16 19:50 Additional Vitals: Vital Signs - 24 hr 10/27/16 10/27/16 10/27/16 11:40 12:00 13:22 Temperature 98.2 F Pulse Rate 100 99 112 Respiratory 22 Rate Blood Pressure 142/81 Pulse Oxygen 98 Saturation 10/27/16 10/27/16 10/27/16 16:00 17:24 19:30 Temperature 98.3 F 97.6 F Pulse Rate 104 118 184 H Respiratory 22 20 Rate Blood Pressure 136/83 122/82 Pulse Oxygen 96 98 Saturation 10/27/16 10/27/16 10/27/16 19:50 20:30 20:45 Temperature Pulse Rate 107 174 H 182 H Respiratory 26 H Rate Blood Pressure 124/72 Pulse Oxygen 98 98 Saturation 10/27/16 10/27/16 10/27/16 20:49 20:50 20:54 Temperature Pulse Rate 192 H 172 H Respiratory 22 Rate Blood Pressure 120/75 132/64 122/60 Pulse Oxygen Saturation 10/27/16 10/27/16 10/27/16 20:55 21:01 21:10 Temperature Pulse Rate 172 H 173 H 174 H Respiratory 24 Rate Blood Pressure 120/70 135/84 120/70 Pulse Oxygen 98 Saturation 10/27/16 10/27/16 10/27/16 21:17 21:27 21:50 Temperature Pulse Rate 180 H 156 H 160 H Respiratory 24 Rate Blood Pressure 113/65 126/84 137/71 Pulse Oxygen 99 98 Saturation 10/27/16 10/27/16 10/27/16 22:57 23:03 23:06 Temperature Pulse Rate 132 H 115 124 H Respiratory 24 Rate Blood Pressure 123/80 Pulse Oxygen 98 Saturation Note: personally witnessed patient breathing at a rate of 30-36 times per minute , but this was not recorded in the vitals section. Reported decreased O2 saturations with heart rate in the 180s. Oxygen Pulse Oxygen Saturation 98 O2 Device Nasal Cannula Oxygen Flow Rate 4 Fraction of Inspired Oxygen ( FIO2) Intake & Output 10/25/16 10/26/16 10/27/16 10/28/16 05:59 05:59 05:59 05:59 Intake Total 2973 2779 660 1499 Output Total 3600 2000 1665 1450 Balance -627 479 -3867 49 Patient's weight 87.77 kg 88.042 kg 89.312 kg GENERAL: Ill-appearing, well nourished, in acute distress. HEENT: Normocephalic, atraumatic; pupils equal and round. Nares patent, without discharge or bleeding. No oropharyngeal lesions or erythema. Mucous membranes are dry. NECK: is supple, no masses, trachea midline. RESPIRATORY: Clear to auscultation bilaterally. Chest wall movements are symmetric. Tachypnea to 30-36 personally witnessed, with use of accessory muscles to breathe. Bilateral wheezing and coarse breath sounds. Rales. CARDIOVASCULAR: Normal S1, S2. Tachycardia with rate 160-180. Irregular. No rubs , or gallops. PMI non-displaced. Carotids: no carotid bruits. DP pulses 1-2+ bilaterally. JVD. GI: soft, nontender, non-distended, normal active bowel sounds. No hepatosplenomegaly. INTEGUMENT: Clean, diaphoretic, and intact. No rashes. MUSCULOSKELETAL: No cyanosis. No clubbing. Edema: 1-2+ lower extremity edema bilaterally. NEUROLOGICAL: Cranial nerves 2-12 grossly intact. Reflexes: 2+ bilaterally. Babinski: toes downgoing bilaterally. Sensory grossly intact to light touch. PSYCHIATRIC: Oriented to person and place. Anxious affect. LYMPHATIC: No cervical lymphadenopathy. No supraclavicular lymphadenopathy. Lab/DI/Studies Reviewed: Laboratory Results - last 24 hr 10/26/16 10/27/16 10/27/16 22:27 00:40 06:25 WBC RBC Hgb Hct MCV MCH MCHC RDW Plt Count MPV Neut % (Auto) Lymph % (Auto) [place] % (Auto) Eos % (Auto) Baso % (Auto) Absolute Neuts (auto) Absolute Lymphs (auto) Puncture Site Right brachial pH 7.410 pCO2 39.0 pO2 94.0 HCO3 24.7 Total CO2 25.9 Base Excess 0.1 FiO2 % 4 lpm Specimen Drawn By Bkl POC Capillary Glucose 91 149 H 10/27/16 10/27/16 10/27/16 11:00 15:57 19:43 WBC RBC Hgb Hct MCV MCH MCHC RDW Plt Count MPV Neut % (Auto) Lymph % (Auto) [place] % (Auto) Eos % (Auto) Baso % (Auto) Absolute Neuts (auto) Absolute Lymphs (auto) Puncture Site pH pCO2 pO2 HCO3 Total CO2 Base Excess FiO2 % Specimen Drawn By POC Capillary Glucose 273 H 156 H 150 H 10/27/16 21:20 WBC 10.6 RBC 2.86 L Hgb 9.3 L Hct 26.8 L MCV 94 MCH 32.7 H MCHC 34.9 RDW 13.9 Plt Count 137 MPV 9.2 Neut % (Auto) 90.7 H Lymph % (Auto) 5.0 L [place] % (Auto) 4.1 Eos % (Auto) 0.1 Baso % (Auto) 0.1 Absolute Neuts (auto) 9.54 H Absolute Lymphs (auto) 0.53 L Puncture Site pH pCO2 pO2 HCO3 Total CO2 Base Excess FiO2 % Specimen Drawn By POC Capillary Glucose EKG 10/23/16: 92 bpm. Atrial fibrillation with Left bundle branch block. Reviewed EKG personally. EKG 10/27/16: 173 bpm. A fib with RVR. LBBB. ST elevations in leads V1, V2, and V3. Marked change from previous EKG. Reviewed EKG personally. Chest x-ray, from early this morning, 10/27/16 at 0030, viewed personally: EXAM: PORTABLE CHEST 1 VIEW COMPARISON: Chest radiograph performed 10/24/2016 FINDINGS: Significantly worsened left mid lung and mild right basilar airspace opacities are compatible with multifocal pneumonia. Underlying vascular congestion is noted. No pleural effusion or pneumothorax is seen. The cardiomediastinal silhouette is borderline normal in size. No acute osseous abnormalities are identified. Bilateral shoulder arthroplasties are grossly unremarkable in appearance, though incompletely imaged. IMPRESSION: See wound worsened left mid lung and mild right basilar airspace opacities, compatible with multifocal pneumonia. Underlying vascular congestion noted. Chest x-ray, stat 10/27/16 at 21:01, viewed personally: EXAM: PORTABLE CHEST 1 VIEW COMPARISON: Chest radiograph performed earlier today at 12:41 a.m. FINDINGS: The lungs are well-aerated. Vascular congestion is noted. Left midlung pneumonia is again noted. There is no evidence of pleural effusion or pneumothorax. The cardiomediastinal silhouette is borderline normal in size. No acute osseous abnormalities are seen. Bilateral shoulder arthroplasties are partially imaged and appear grossly unremarkable. IMPRESSION: Vascular congestion noted. Left midlung pneumonia again noted, similar in appearance to the prior study. - Assessment (1) Atrial fibrillation with rapid ventricular response Chronic I48.91 - UNSPECIFIED ATRIAL FIBRILLATION (2) Acute respiratory failure with hypoxia Acute J96.01 - ACUTE RESPIRATORY FAILURE WITH HYPOXIA (3) Chest pain Acute R07.9 - CHEST PAIN, UNSPECIFIED Qualifiers: Chest pain type: C Ischemic chest pain type: I (4) Acute on chronic diastolic (congestive) heart failure Acute I50.33 - ACUTE ON CHRONIC DIASTOLIC (CONGESTIVE) HEART FAILURE (5) Left bundle branch block Chronic I44.7 - LEFT BUNDLE-BRANCH BLOCK, UNSPECIFIED Comment/Plan: Chronic. Noted. - Plan (1) Atrial fibrillation with rapid ventricular response Chronic I48.91 - UNSPECIFIED ATRIAL FIBRILLATION Comment/Plan: UPDATE 10/27/16 evening: Worsening. Severe chest pain with heart rate 180s. Plan: Stat EKG. IV diltiazem x 2 did not stop fast rate. Beta kalyan. Consulted Dr. Conrad. IV diltiazem gtt. (2) Acute respiratory failure with hypoxia Acute J96.01 - ACUTE RESPIRATORY FAILURE WITH HYPOXIA Comment/Plan: HISTORY: Still with extensive pneumonia on chest x-ray. Clinically appear some better with less wheezing and less distress. Continue IV antibiotics nebulizer treatments and pulmonary toilet. Encourage spirometry and activity as tolerated. UPDATE 10/27/16 evening: acute worsening along with severe chest pain. Plan: O2 supplementation. Evaluate chest pain. Stat CXR. Stat labs. D-dimer, and if positive consider CTA. (3) Chest pain Acute R07.9 - CHEST PAIN, UNSPECIFIED Qualifiers: Chest pain type: C Ischemic chest pain type: I Comment/Plan: HISTORY 2014: His chest pain is very atypical non anginal in nature and knowing his metformin normal coronary arteriograms I would assume that this is not ischemic it could be demand due to his anemia and a rapid atrial fibrillation. I agree with measures to correct both I would not anticoagulated I would not consider referral for coronary arteriography at this time. UPDATE 10/27/16: New severe chest pain started this evening. IV morphine. PRN nitro. Per Dr. Conrad patient is at high risk for GI bleed with anticoagulation. Has had multiple negative catheterizations. Unlikely to be due to ischemia. (4) Acute on chronic diastolic (congestive) heart failure Acute I50.33 - ACUTE ON CHRONIC DIASTOLIC (CONGESTIVE) HEART FAILURE Comment /Plan: IV Lasix 40 x 1 given. If patient responds, consider giving further lasix and using heart failure order set. (5) Left bundle branch block Chronic I44.7 Noted. Present on previous EKGs. In summary, this patient is acutely and critically ill. The patient requires treatment of vital organ failure and measures to prevent further life- threatening deterioration of condition. Discussed case in detail with dog beautician, Dr. Conrad, who will consult on this patient. I have spent 60 min in the critical care of this patient. Case Care Discussed with: Patient, Consultants (Dr. Conrad, dog beautician.), Nursing Staff Education/Counseling Given To: Patient Total Time: 60 min Critical Care: Yes Code: 291
[2016-10-27] MEDS: MORPHINE 2 MG/ML INJECTION IV PRN (21:13)
[2016-10-27] MEDS ORDERED: DIPHENHYDRAMINE 50 MG/ML VIAL ONE (21:20)
[2016-10-27] MEDS: CEFTRIAXONE 1 GM in D5W 100 ML IV SCH (21:30)
[2016-10-27] MEDS ORDERED: DIPHENHYDRAMINE 50 MG/ML VIAL IV ONE (21:30)
[2016-10-27 21:32] LABS: AUTOMATED BASOPHIL 0.1 % (0-2); AUTOMATED EOSINOPHIL 0.1 % (0-5); AUTOMATED MONOCYTE 4.1 % (3-10); AUTOMATED NEUTROPHIL 90.7 % (45-76); MPV 9.2 fL (7.4-10.4)
[2016-10-27] MEDS: Diltiazem HCl 100 MG in D5W 100 ML IV SCH (21:49)
--- NOTE | 2016-10-27 21:57 | DIRPT ---
CLINICAL DATA: Acute onset of confusion and noisy respirations. Initial encounter. EXAM: PORTABLE CHEST 1 VIEW COMPARISON: Chest radiograph performed earlier today at 12:41 a.m. FINDINGS: The lungs are well-aerated. Vascular congestion is noted. Left midlung pneumonia is again noted. There is no evidence of pleural effusion or pneumothorax. The cardiomediastinal silhouette is borderline normal in size. No acute osseous abnormalities are seen. Bilateral shoulder arthroplasties are partially imaged and appear grossly unremarkable. IMPRESSION: Vascular congestion noted. Left midlung pneumonia again noted, similar in appearance to the prior study. Electronically Signed By: Yakov Esteban M.D. On: 10/27/2016 21:54
[2016-10-27 22:00] LABS: LEUKOCYTES/URINE NEG (NEGATIVE); NITRITE/URINE NEG (NEGATIVE); RBC/URINE 0-2 (0-2); URINE OCCULT BLOOD NEG (NEG/TRACE); WBC/URINE 0-2 (0-2)
[2016-10-27 22:01] LABS: BLOOD UREA NITROGEN 69 MG/DL (9-20); CALCIUM 8.4 MG/DL (8.4-10.2); CALCULATED OSMOLALITY 275 MOs/Kg (270-290); CHLORIDE 93 mEq/L (98-107); GLUCOSE 143 MG/DL (70-99); SODIUM LEVEL 131 mEq/L (137-146); TOTAL PROTEIN 6.3 G/DL (6.3-8.2)
[2016-10-27 22:59] LABS: CPKMB 12.5 ng/mL (0-4.5); CPKMB RELATIVE INDEX 7.1 (0.0-2.2)
[2016-10-28] MEDS: METHYLPREDNISOLONE 40 MG/1 ML VIAL IV SCH ×4 (00:09→20:58)
[2016-10-28] MEDS: DILTIAZEM 30 MG TAB PO SCH ×5 (01:00→22:59)
[2016-10-28] MEDS: Albuterol/Ipratropium Neb 3 ML NEB NEB SCH ×3 (02:14→13:28)
[2016-10-28 03:50] LABS: AUTOMATED BASOPHIL 0.2 % (0-2); AUTOMATED MONOCYTE 4.6 % (3-10); AUTOMATED NEUTROPHIL 89.2 % (45-76); MPV 9.7 fL (7.4-10.4)
[2016-10-28 04:01] LABS: BLOOD UREA NITROGEN 67 MG/DL (9-20); CALCIUM 8.3 MG/DL (8.4-10.2); CALCULATED OSMOLALITY 274 MOs/Kg (270-290); CHLORIDE 92 mEq/L (98-107); GLUCOSE 142 MG/DL (70-99); SODIUM LEVEL 131 mEq/L (137-146)
[2016-10-28 04:42] VITALS: BMI 26.8
[2016-10-28] MEDS ORDERED: Pharmacy Review for Metformin - IV Contrast Given SCH (06:00)
[2016-10-28] MEDS: PANTOPRAZOLE 40 MG TAB PO SCH (06:42)
[2016-10-28] MEDS: REGULAR INSULIN 100 UNITS/ML - 3 ML VIAL SQ SCH ×4 (06:42→22:59)
[2016-10-28] MEDS: GABAPENTIN 300 MG CAP PO SCH ×3 (06:42→20:57)
--- NOTE | 2016-10-28 06:50 | DIRPT ---
CLINICAL DATA: 86-year-old male with sudden onset chest pain and elevated D-dimer. EXAM: CT ANGIOGRAPHY CHEST WITH CONTRAST TECHNIQUE: Multidetector CT imaging of the chest was performed using the standard protocol during bolus administration of intravenous contrast. Multiplanar CT image reconstructions and MIPs were obtained to evaluate the vascular anatomy. CONTRAST: 80 cc Isovue 370 COMPARISON: Radiograph dated 10/27/2016 FINDINGS: Evaluation is limited due to streak artifact caused by metallic shoulder arthroplasties. There are bilateral patchy areas of airspace ground-glass opacity most compatible with multifocal pneumonia. Clinical correlation and follow-up recommended. A 6 mm nodular density in the right lower lobe (series 3, image 60) may represent an area of scarring. Trace fluid may be present along the right middle lobe pleural. No significant pleural effusion. No pneumothorax. The central airways are patent. There is atherosclerotic calcification of the thoracic aorta. No aneurysmal dilatation or evidence of dissection. No CT evidence of pulmonary embolism. Right hilar adenopathy. Subcarinal adenopathy measures 2 cm in short axis. Top-normal cardiac size. There is coronary vascular calcification. Calcified mitral annulus. No pericardial effusion. The esophagus and the thyroid gland appear grossly unremarkable. No axillary adenopathy. The chest wall soft tissues appear unremarkable. There is multilevel degenerative changes of the spine. Bilateral shoulder arthroplasty changes. For there is elevation of the left humeral head compatible with chronic rotator cuff injury. The right shoulder arthroplasty appears in similar alignment as prior radiograph. Partially visualized 1.9 cm exophytic lesion from the posterior cortex of the right kidney. This is incompletely characterized but appears stable as the study dated 01/31/2015. Ultrasound may provide better characterization. Review of the MIP images confirms the above findings. IMPRESSION: No CT evidence of pulmonary embolism. Bilateral patchy airspace ground-glass opacities most compatible with pneumonia. Clinical correlation and follow-up recommended. Electronically Signed By: Kai Puga M.D. On: 10/28/2016 06:48
[2016-10-28] MEDS: MORPHINE 15 MG EXT REL TAB PO SCH ×3 (07:21→19:36)
[2016-10-28] MEDS: Diltiazem HCl 100 MG in D5W 100 ML IV SCH ×3 (07:39→22:59)
[2016-10-28] MEDS: GUAIFENESIN 600 MG LA TAB PO SCH ×2 (07:43→20:57)
[2016-10-28] MEDS: POTASSIUM CHLORIDE 20 MEQ TAB PO SCH (07:44)
[2016-10-28] MEDS: FUROSEMIDE 40 MG TAB PO SCH (07:44)
[2016-10-28] MEDS: ASCORBIC ACID 500 MG TAB PO SCH (07:44)
[2016-10-28] MEDS: VITAMIN E 400 UNITS/CAP CAP PO SCH (07:44)
[2016-10-28] MEDS: TAMSULOSIN HCL 0.4 MG CAP PO SCH (07:44)
[2016-10-28] MEDS: Aspirin (Orange Enteric Coated) 325 mg tab PO SCH (07:44)
[2016-10-28] MEDS: GLARGINE INSULIN (LANTUS) 100 UNITS/ML PEN SQ SCH (07:45)
[2016-10-28] MEDS: DUTASTERIDE 0.5 MG CAP PO SCH (07:45)
[2016-10-28] MEDS: FERROUS SULFATE 324 MG TAB PO SCH ×2 (07:46→15:49)
[2016-10-28] MEDS: METOPROLOL TARTRATE 50 MG TAB PO SCH ×3 (07:46→20:58)
--- NOTE | 2016-10-28 08:35 | PCM.CARDCO ---
Consultation Date: 10/28/16 Requesting Physician: Ruddy Hodge Squeegee Operator: Shiva Conrad Consult Reason: Chest Pain, Other (Atrial fibrillation and left bundle branch block) - History of Present Illness He is known to my practice with a history of hypertensive heart disease with heart failure, chronic diastolic heart failure chronic atrial fibrillation previous marked GI bleeding requiring admission and transfusion the hospital in the setting of anticoagulation for pulmonary embolism and recurrent pneumonia. Other medical problems of included in the past severe hyponatremia with diuretics. I can't access at least for but my office chart says 6 heart catheterization performed a coronary arteriography for chest pain noncardiac associated with a markedly abnormal EKG with left bundle branch block and atrial fibrillation. He is admitted to hospital recurrent pneumonia had respiratory distress rapid atrial fibrillation and chest pain. Serial cardiac enzymes did not show evidence of acute coronary syndrome CT of the chest shows no pulmonary embolism embolism but appears to have multifocal pneumonia. He is admitted to the hospital with recurrent pneumonia failing outpatient treatment with increasing shortness of breath cough and wheezing little no sputum production. In the hospital he shortness of breath was particularly severe at night particularly severe last evening and appeared to be in decompensated heart failure. He has a history of pulmonary embolism CTA showed bilateral pneumonia but no PE. Associated with rapid atrial fibrillation respiratory distress he had heaviness in his chest that resolved with rate control and diuresis. He does not have a pattern of typical exertional angina. He has had similar episodes in the past with rapid atrial fibrillation and pneumonia. He also notices increasing edema Chief Complaint: sob, cough - Past Medical and Surgical History Cardiac History: Reports: Atrial Fibrillation, Hypertension (HCVD), Congestive Heart Failure (diastolic dysfunction), Cardiac Catheterization (6 TIMES), Hypercholesterolemia, Valvular Heart Disease (SEVERE AORTIC STENOSIS) Respiratory History: Reports: Cough, Pneumonia, Emphysema, Pulmonary Embolism. Denies: Asthma, COPD GI/ History: Reports: Renal Disease (CKD-III), Gastroesophageal Reflux, BPH Systemic History: Reports: Anemia (chronic disease), Diabetes. Denies: Cancer Musculoskeletal History: Reports: Arthritis, Osteoarthritis Psychological History: Reports: Anxiety. Denies: Substance Use Disorder Neurological History: Reports: Dementia. Denies: Cerebrovascular Accident Past Surgical History: Reports: Appendectomy, Cholecystectomy, Angioplasty, Cardiac Catheterization (6 TIMES), Hernia Surgery (UMBILICAL & INGUINAL), Other (prostate x2,back surgery,left tympanoplasty, bilat. shoulder replacements) Allergies Penicillins Allergy (Mild, Verified 10/05/15 07:17) Nausea/Vomiting Home Medications Gabapentin [Neurontin] 300 mg PO TID 10/25/12 Terazosin [Hytrin] 1 mg PO HS 05/03/14 Ferrous Sulfate [Iron] 325 mg PO BID 07/05/14 HydrALAZINE (Cardiovascular) [Apresoline] 50 mg PO QID 07/05/14 POTASSIUM CHLORIDE Tablet [K-DUR 20 mEq Tablet*] 20 meq PO DAILY 07/05/14 Fluticasone/Salmeterol [Advair 500-50 Diskus] 1 inh INH BID PRN 08/20/14 CloNIDine (Antihypertensive) [Catapres] 0.3 mg PO BID 12/31/14 Pantoprazole Sodium [Protonix] 40 mg PO DAILY 01/30/15 Insulin Aspart [Novolog] 0 units SQ .SLIDING SCALE WMEAL 07/11/15 Metoprolol Tartrate [Lopressor] 75 mg PO BID 07/11/15 Omeprazole 20 mg PO BID 07/11/15 Tamsulosin HCl [Flomax] 0.4 mg PO DAILY 07/11/15 Dutasteride [Avodart] 0.5 mg PO DAILY #30 capsule 07/16/15 Furosemide [Lasix] 40 mg PO BID #120 tab 07/16/15 Ascorbic Acid [Vitamin C] 1,000 mg PO DAILY 10/23/16 Insulin Glargine,Hum.rec.anlog [Ramses Solchalo] 12 unit SQ QAM 10/23/16 Levofloxacin [Levaquin] 750 mg PO DAILY 10/23/16 Lorazepam 0.5 mg PO QHS PRN 10/23/16 Morphine Sulfate [Morphine Sulfate ER] 15 mg PO TID 10/23/16 Vitamin E Mixed [Vitamin E] 1,000 unit PO DAILY 10/23/16 - Social History Travel Outside of [place] in the Last 3 Months?: No Lives: With Family Smoking Status: Never smoker Social History: Denies: Substance Use Disorder - Family History Reports: Hypertension (Father), Diabetes (Father), Stroke (FATHER). Denies: Cancer, Cardiac Disorders - Review of Systems Constitutional: Chills, Fever, Diaphoresis, Fatigue, Loss of Appetite, Weakness , Weight loss - Respiratory Cough, Shortness of Breath, Wheezing. negative: Sputum - Cardiovascular Chest Pain, Orthopnea, Palpitations (He is aware of his rapid atrial fibrillation) - Gastrointestinal Gastrointestinal: Other (He has had no bleeding) - Musculoskeletal Musculoskeletal:: Other (He notices no edema at his ankles) - Physical Exam Constitutional: Other (He is comfortable today at rest head of the bed elevated 30 and is alert but very hard of hearing and difficult to communicate with, not in distress). negative: No apparent distress Oriented to: Time, Person, Place Exam: Last Vital Signs Temp 98.2 F 10/28/16 04:00 Pulse 90 10/28/16 05:55 Resp 20 10/28/16 04:06 BP 168/81 10/28/16 05:55 Pulse Ox 95 10/28/16 04:00 Intake & Output 10/27/16 10/28/16 10/28/16 23:59 07:59 15:59 Intake Total 315 581 Output Total 350 2750 Balance -35 -2169 Patient's weight 197 lb 11.2 oz - HEENT Head: Normal (He has moderate neck vein distention no bruit thyromegaly) Eye: Normal Oropharynx: Normal ENT EAC: Normal TMJ: Normal Nose: No Symptoms Reported - Respiratory/Cardiovascular Respiratory: Diminished, Rales (Rales bottom 3rd of the chest bilaterally posteriorly white), Rhonchi (Diffuse rhonchi), Wheezes (Diffuse polyphonic wheezing) Cardiovascular: Irregular (Distant variable 1st heart sound S2 paradoxical he has a 3rd heart sound exam), Gallop/S3 - GI Auscultation: Normal (Soft nondistended nontender) Palpation: Normal Tenderness: Non tender Rectal Exam: Deferred - Musculoskeletal Back: No Palpable Step-off Extremities: Edema (One to 2+ to the knees), Femoral Pulse, Pedal Edema, Pedal Pulse, Radial Pulse. negative: Calf Tenderness, Clubbing, Cyanosis (Cyanosis last evening has resolved) - Integumentary Skin: Warm, Hot, Pale (His pallor of the skin and membranes). negative: Clammy , Diaphoretic, Petechiae, Jaundice Lymphatics: Normal. negative: Adenopathy - Neurologic Memory Impaired: Short-term Cerebellar: Ataxia Mood Description: Anxious Thought: Coherent Perception: Normal - Lab Results Laboratory Tests 10/23/16 10/23/16 10/27/16 20:32 20:32 00:40 WBC Hgb Plt Count INR 1.1 D-Dimer Quant (PE/DVT) pH 7.410 pCO2 39.0 pO2 94.0 Sodium Creatinine Estimated GFR (MDRD) Troponin I Fnx-Q-Xouzsunwckp Pept 41928 H 10/27/16 10/27/16 10/28/16 21:20 21:20 00:55 WBC Hgb Plt Count INR D-Dimer Quant (PE/DVT) 556 H pH pCO2 pO2 Sodium Creatinine Estimated GFR (MDRD) Troponin I 0.05 0.04 Qez-W-Sncrwooifaw Pept 10/28/16 10/28/16 10/28/16 03:30 03:30 03:30 WBC 7.3 Hgb 9.0 L Plt Count 114 L INR D-Dimer Quant (PE/DVT) pH pCO2 pO2 Sodium 131 L Creatinine 1.80 H Estimated GFR (MDRD) 36 L Troponin I 0.04 Ffq-G-Qhzetxuksfa Pept Chest CTA shows findings of multifocal pneumonia Review of I&O shows diuresis of over 2 L last evening I reviewed 2 EKGs from my home last evening both with atrial fibrillation and variable heart rates and marked left bundle branch block with repolarization change Selected Entries 10/24/16 10/24/16 10/25/16 00:57 04:00 04:00 Patient's 192 lb 2 oz 192 lb 2 oz 193 lb 8 oz weight Pulse Rate 10/26/16 10/27/16 10/27/16 04:00 03:21 21:50 Patient's 194 lb 1.6 oz 196 lb 14.4 oz weight Pulse Rate 160 H 10/28/16 10/28/16 10/28/16 00:00 04:00 04:49 Patient's 197 lb 11.2 oz weight Pulse Rate 139 H 131 H 10/28/16 10/28/16 04:58 05:55 Patient's weight Pulse Rate 114 90 - Assessment/Plan (1) Chest pain R07.9 - CHEST PAIN, UNSPECIFIED Acute Present on Admission: No C I Comment: His chest pain clinically appears to be demand ischemia due to pneumonia rapid atrial fibrillation in decompensated heart failure is improved and has no evidence of myocardial infarction. Knowing that he has had at least 4-6 normal coronary arteriograms and in the setting of acute pneumonia I would not advocate coronary arteriography at this time. I reviewed this with patient arrived her comfortable with this approach and I would direct our attention as pneumonia heart failure and rate control of atrial fibrillation. He is improved with good care from Dr. Hodge last evening (2) Atrial fibrillation I48.91 - UNSPECIFIED ATRIAL FIBRILLATION Chronic Present on Admission: Yes chronic I48.2 - Chronic atrial fibrillation Comment: Rate was rapid uncontrolled due to acute medical illness now improved, in these situations I think patients do best with short-acting frequent calcium channel kalyan and beta-kalyan for rate control that can be titrated through the hospital stay and adjusted at discharge once improved. In the absence of anticoagulation with atrial fibrillation present for years I would not consider cardioversion. Despite his high chads 2 Vasc score of 4 he is a contraindication full anticoagulant therapy. (3) Hypertensive heart disease with CHF I11.0 - HYPERTENSIVE HEART DISEASE WITH HEART FAILURE Acute Present on Admission: Yes Comment: Stable hypertension continue current treatment including calcium channel kalyan beta-kalyan and long-term clonidine which has worked very well as an outpatient. (4) Acute on chronic diastolic (congestive) heart failure I50.33 - ACUTE ON CHRONIC DIASTOLIC (CONGESTIVE) HEART FAILURE Acute Present on Admission: Yes Comment: Decompensated weight is up 5 lb he will benefit from diuresis in this contributed to his respiratory distress especially in the presence of acute lung injury and tendency to lung edema. (5) Pneumonia J18.9 - PNEUMONIA, UNSPECIFIED ORGANISM Acute Present on Admission: Yes due to unspecified organism A left lower lobe of lung J18.1 - Lobar pneumonia, unspecified organism Comment: Treated by the hospitalist group, he has multiple recurrent admissions his relates he is having a swallowing evaluation performed. Case Care Discussed with: Patient, Family (And Dr. Hodge)
--- NOTE | 2016-10-28 10:17 | GENMEDPROG ---
Chief Complaint: atrial fib RVR, dyspnea, chest pain, CHF (acute carrasco), anxiety Currently: Reports: Cough, Wheezing, MAYNARD, SOB. Denies: Nausea and Vomiting, Abdominal Pain, Chest Pain DVT Prophylaxis: Yes - Physical Examination Vital Signs and I&O: Last Vital Signs Temp 98.2 F 10/28/16 04:00 Pulse 80 10/28/16 08:47 Resp 20 10/28/16 08:00 BP 150/78 10/28/16 08:47 Pulse Ox 97 10/28/16 08:00 Oxygen Pulse Oxygen Saturation 97 O2 Device Nasal Cannula Oxygen Flow Rate 4 Fraction of Inspired Oxygen ( FIO2) Intake & Output 10/25/16 10/26/16 10/27/16 10/28/16 23:59 23:59 23:59 23:59 Intake Total 2805 1368 1739 701 Output Total 2650 1890 1875 2750 Balance 982 -889 -653 -9205 Patient's weight 87.77 kg 88.042 kg 89.312 kg 89.675 kg General: Alert, Oriented x3, Cooperative, Moderate distress, Weakness, Fatigue HEENT: Normal, PERRLA, EOMI, Anicteric Sclera, Mucous membr. moist/pink Neck: Full range of motion, Normal Trachea alignment, Normal inspection, No Masses palpable, No Thyromegaly palpable Lymphatics: Normal. negative: Adenopathy Respiratory: Accessory Muscle Use, Diminished, Rhonchi, Wheezes Cardiovascular: Regular rate and rhythm, Normal S1, Normal S2 GI: Normal bowel sounds, Soft, Non tender, No masses Extremities/Musculoskeletal: Normal pulses, Tenderness, Swelling, Edema, DJD, FROM Skin: Warm,Dry and Intact, No rashes, No breakdown, No significant lesion Neurological: Normal speech, Normal tone, Cranial nerves 3-12 NL. negative: Strength at 5/5 X4 ext (4/5) Psych/Mental Status: Appropriate, Normal Affect, Cooperative, Anxious Lab/DI/Studies Reviewed: Laboratory Tests 10/28/16 10/28/16 10/28/16 00:55 03:30 03:30 WBC 7.3 Hgb 9.0 L Hct 25.8 L Plt Count 114 L Neut % (Auto) 89.2 H Lymph % (Auto) 6.0 L [place] % (Auto) 4.6 Sodium 131 L Potassium 3.5 Chloride 92 L Carbon Dioxide 28 Anion Gap 15 BUN 67 H Creatinine 1.80 H Estimated GFR (MDRD) 36 L Glucose 142 H POC Capillary Glucose Calculated Osmolality 274 Calcium 8.3 L Creatine Kinase 140 Troponin I 0.04 10/28/16 10/28/16 10/28/16 03:30 06:39 10:30 WBC Hgb Hct Plt Count Neut % (Auto) Lymph % (Auto) [place] % (Auto) Sodium Potassium Chloride Carbon Dioxide Anion Gap BUN Creatinine Estimated GFR (MDRD) Glucose POC Capillary Glucose 175 H 246 H Calculated Osmolality Calcium Creatine Kinase 122 Troponin I 0.04 10/28/16 16:11 WBC Hgb Hct Plt Count Neut % (Auto) Lymph % (Auto) [place] % (Auto) Sodium Potassium Chloride Carbon Dioxide Anion Gap BUN Creatinine Estimated GFR (MDRD) Glucose POC Capillary Glucose 235 H Calculated Osmolality Calcium Creatine Kinase Troponin I CTA Chest: IMPRESSION: No CT evidence of pulmonary embolism. Bilateral patchy airspace ground-glass opacities most compatible with pneumonia. Clinical correlation and follow-up recommended. Electronically Signed By: Kai Puga M.D. On: 10/28/2016 06:48 - Assessment (1) Acute respiratory failure with hypoxia Acute J96.01 - ACUTE RESPIRATORY FAILURE WITH HYPOXIA Comment/Plan: HISTORY : Still with extensive pneumonia on chest x-ray. Clinically appear some better with less wheezing and less distress. Continue IV antibiotics, nebulizer treatments changed to Xopenex, and continue pulmonary toilet. Encourage spirometry and activity as tolerated. O2 supplementation. Evaluate chest pain. Stat CXR. (2) Acute on chronic diastolic (congestive) heart failure Acute I50.33 - ACUTE ON CHRONIC DIASTOLIC (CONGESTIVE) HEART FAILURE Comment /Plan: Renal function moderately impaired. IV Lasix 40 x 1 given. (3) Atrial fibrillation Chronic I48.91 - UNSPECIFIED ATRIAL FIBRILLATION Qualifiers: Atrial fibrillation type: chronic Qualified Code(s): I48.2 - Chronic atrial fibrillation Comment/Plan: Continue to have episodes of rapid rate. Have consulted cardiology for assistance with control. Continue current medications. (4) Pneumonia Acute J18.9 - PNEUMONIA, UNSPECIFIED ORGANISM Qualifiers: Pneumonia type: aspiration pneumonia Aspiration pneumonia type: A Laterality: bilateral Lung location: lower lobe of lung Comment/Plan: Chest x-ray with multifocal pneumonia. Remains congested but with less wheezing. Change IV antibiotics- this is day 7 of IV Rocephin and Zithromax and there are persistent bilateral infiltrates; continue nebulizer treatments and pulmonary toilet. Change to Primaxin. (5) COPD exacerbation Acute J44.1 - CHRONIC OBSTRUCTIVE PULMONARY DISEASE W (ACUTE) EXACERBATION Comment/Plan: continue to wean IV steroids, changed nebulizer treatments to Xopenex for less cardiac irritation, will continue pulmonary toilet (6) Hypoxia Acute R09.02 - HYPOXEMIA (7) CKD (chronic kidney disease) stage 3, GFR 30-59 ml/min Chronic N18.3 - CHRONIC KIDNEY DISEASE, STAGE 3 (MODERATE) Comment/Plan: Maintain hydration avoid any nephrotoxins. Monitor BMP (8) GERD (gastroesophageal reflux disease) Chronic K21.9 - GASTRO-ESOPHAGEAL REFLUX DISEASE WITHOUT ESOPHAGITIS Qualifiers: Esophagitis presence: without esophagitis Qualified Code(s): K21.9 - Gastro -esophageal reflux disease without esophagitis Comment/Plan: Continue PPI (9) Left bundle branch block Chronic I44.7 - LEFT BUNDLE-BRANCH BLOCK, UNSPECIFIED Comment/Plan: Chronic. Noted. (10) Physical deconditioning Acute R53.81 - OTHER MALAISE Comment/Plan: Continue PTOT increase activity. (11) Diabetes mellitus Chronic E11.9 - TYPE 2 DIABETES MELLITUS WITHOUT COMPLICATIONS Qualifiers: Diabetes mellitus type: type 2 Diabetes mellitus complication status: with neurologic complications Diabetes mellitus complication detail: with unspecified neuropathy Diabetic retinopathy severity: D Proliferative retinopathy type: P Diabetes mellitus macular edema: D Diabetes mellitus terminal worker insulin use: with retirement use Laterality: L Chronic kidney disease stage: C Qualified Code(s): E11.40 - Type 2 diabetes mellitus with diabetic neuropathy, unspecified; Z79.4 - halfway (current) use of insulin Comment/Plan: Continue Lantus and ADA diet and sliding scale regular insulin
[2016-10-28] MEDS: FUROSEMIDE 40 MG/4 ML VIAL IV SCH ×2 (12:00→15:48)
[2016-10-28] MEDS: ALPRAZOLAM 0.25 MG TAB PO SCH ×2 (15:48→22:59)
[2016-10-28] MEDS ORDERED: LEVALBUTEROL 1.25 MG in 3 ML NEB NEB SCH (16:00)
[2016-10-28] MEDS ORDERED: IPRATROPIUM 0.02% 2.5 ML NEB NEB SCH (16:00)
[2016-10-28] MEDS: ENOXAPARIN 40 MG/0.4 ML PFS SQ SCH (16:54)
[2016-10-28] MEDS: MORPHINE 2 MG/ML INJECTION IV PRN (17:43)
[2016-10-28] MEDS ORDERED: GI COCKTAIL 30 ML DOSE PO PRN (18:40)
[2016-10-28] MEDS: TERAZOSIN 1 MG CAP PO SCH (20:57)
[2016-10-28] MEDS: IMIPENEM CILASTATIN 250 MG in D5W 100 ML IV SCH (21:03)
[2016-10-28] MEDS ORDERED: IMIPENEM CILASTATIN 500 MG in D5W 100 ML IV SCH (22:00)
[2016-10-29] MEDS: LEVALBUTEROL 1.25 MG in 3 ML NEB NEB SCH ×4 (00:55→23:40)
[2016-10-29] MEDS: IPRATROPIUM 0.02% 2.5 ML NEB NEB SCH ×4 (00:58→23:41)
[2016-10-29] MEDS: Diltiazem HCl 100 MG in D5W 100 ML IV SCH ×3 (01:51→22:46)
[2016-10-29] MEDS: METOPROLOL TARTRATE 50 MG TAB PO SCH ×3 (05:03→22:11)
[2016-10-29] MEDS: ALPRAZOLAM 0.25 MG TAB PO SCH ×3 (05:03→22:13)
[2016-10-29] MEDS: DILTIAZEM 30 MG TAB PO SCH ×3 (05:03→16:57)
[2016-10-29] MEDS: MORPHINE 15 MG EXT REL TAB PO SCH ×3 (05:03→22:13)
[2016-10-29] MEDS: IMIPENEM CILASTATIN 250 MG in D5W 100 ML IV SCH ×4 (05:04→22:05)
[2016-10-29] MEDS: PANTOPRAZOLE 40 MG TAB PO SCH (05:05)
[2016-10-29] MEDS: GABAPENTIN 300 MG CAP PO SCH ×3 (05:05→22:11)
[2016-10-29] MEDS: REGULAR INSULIN 100 UNITS/ML - 3 ML VIAL SQ SCH ×4 (05:10→22:16)
[2016-10-29] MEDS: METHYLPREDNISOLONE 40 MG/1 ML VIAL IV SCH ×2 (05:10→16:57)
[2016-10-29] MEDS: Aspirin (Orange Enteric Coated) 325 mg tab PO SCH (08:31)
[2016-10-29] MEDS: FUROSEMIDE 40 MG/4 ML VIAL IV SCH ×2 (08:31→15:37)
[2016-10-29] MEDS: TAMSULOSIN HCL 0.4 MG CAP PO SCH (08:31)
[2016-10-29] MEDS: GUAIFENESIN 600 MG LA TAB PO SCH ×2 (08:31→22:11)
[2016-10-29] MEDS: GLARGINE INSULIN (LANTUS) 100 UNITS/ML PEN SQ SCH (08:32)
[2016-10-29] MEDS: DUTASTERIDE 0.5 MG CAP PO SCH (08:32)
[2016-10-29] MEDS: MORPHINE 2 MG/ML INJECTION IV PRN (08:45)
--- NOTE | 2016-10-29 09:39 | PCM.CARD ---
- Subjective Reason for visit: Follow up chest pain Complaining of still being weak tired exhausted coughing. Complained of having chest pain but pain is worse when taking deep breath. He said this is heartburn. Actually he did receive some medication for it which seems to be helping. Vital Signs: Last Vital Signs Temp 97.7 F 10/29/16 04:00 Pulse 112 10/29/16 08:00 Resp 18 10/29/16 04:00 BP 121/74 10/29/16 07:00 Pulse Ox 95 10/29/16 07:59 PE: General Appearance: Well developed. Well nourished. In no acute distress. Lungs: Chest was not overinflated. Bilateral crackles both sides.. Cardiovascular: Jugular Venous Distention: JVD not increased. Heart Rate And Rhythm: Irregularly irregular, tachycardia. Heart Sounds: Normal. Murmurs: No murmurs were heard. Carotid Arteries: Carotid pulses were normal. No bruit in the carotid artery. Edema: Not present. Lower extremities pulses normal (including femoral popliteal and dorsalis pedis) . Musculoskeletal System: General/bilateral: No cyanosis of the fingers. Neurological: Oriented to time, place, and person. Nails: No clubbing of the fingernails. Lab/DI Results Reviewed: Laboratory Results - last 24 hr 10/28/16 10/28/16 10/28/16 10:30 16:11 22:57 POC Capillary Glucose 246 H 235 H 274 H 10/29/16 04:05 POC Capillary Glucose 226 H - Assessment/Plan (1) Chest pain Chronic R07.9 - CHEST PAIN, UNSPECIFIED Present on Admission: Yes C I Comment/Plan: Pain is atypical worse with taking deep breath and coughing. He thinks this is a heartburn in the matter of fact he was given some medication for it with some relief. He did have multiple cardiac catheterization the past never had coronary artery disease. His biochemical markers are not positive. Will continue conservative approach. (2) Acute respiratory failure with hypoxia Acute J96.01 - ACUTE RESPIRATORY FAILURE WITH HYPOXIA Present on Admission: Yes Comment/Plan: Management as per Internal Medicine team. He is on oxygen support as well as appropriate antibiotic. (3) Hypertensive heart disease with CHF Acute I11.0 - HYPERTENSIVE HEART DISEASE WITH HEART FAILURE Present on Admission: Yes Comment/Plan: On appropriate medication all review all appropriate. Blood pressure appears to be still elevated will adjust medications. (4) Pneumonia Acute J18.9 - PNEUMONIA, UNSPECIFIED ORGANISM Present on Admission: Yes aspiration pneumonia A bilateral lower lobe of lung Comment/Plan: Antibiotic and oxygen support. (5) Atrial fibrillation Chronic I48.91 - UNSPECIFIED ATRIAL FIBRILLATION Present on Admission: Yes chronic I48.2 - Chronic atrial fibrillation Comment/Plan: Ready still on the higher side however it is appropriate for this clinical scenario. Will continue present management. He is not anticoagulated because of history of severe GI bleed. 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
[2016-10-29] MEDS ORDERED: Aluminum;Magnesium;Simethicone 30 ML UDC PO PRN (09:41)
--- NOTE | 2016-10-29 10:57 | GENMEDPROG ---
Currently: Reports: Cough, Wheezing, MAYNARD, SOB. Denies: Nausea and Vomiting, Abdominal Pain, Chest Pain DVT Prophylaxis: Yes - Physical Examination Vital Signs and I&O: Last Vital Signs Temp 97.7 F 10/29/16 04:00 Pulse 70 10/29/16 10:00 Resp 12 10/29/16 10:00 BP 153/70 10/29/16 10:00 Pulse Ox 92 10/29/16 10:00 Oxygen Pulse Oxygen Saturation 92 O2 Device Nasal Cannula Oxygen Flow Rate 1 Fraction of Inspired Oxygen ( FIO2) Intake & Output 10/26/16 10/27/16 10/28/16 10/29/16 23:59 23:59 23:59 23:59 Intake Total 1368 1739 1061 289 Output Total 1890 1405 2370 750 Balance -522 -136 -3439 -461 Patient's weight 88.042 kg 89.312 kg 89.675 kg 89.811 kg General: Alert, Oriented x3, Cooperative, No acute distress, Weakness HEENT: Normal, PERRLA, EOMI, Anicteric Sclera, Mucous membr. moist/pink Neck: Full range of motion, Normal Trachea alignment, Normal inspection, No Masses palpable, No Thyromegaly palpable Lymphatics: Normal. negative: Adenopathy Respiratory: Diminished, Rales (mild) Cardiovascular: Regular rate and rhythm, Normal S1, Normal S2 GI: Normal bowel sounds, Soft, Non tender, No masses Extremities/Musculoskeletal: Normal pulses, Tenderness, Swelling, Edema, DJD, FROM Skin: Warm,Dry and Intact, No rashes, No breakdown, No significant lesion Neurological: Normal speech, Normal tone, Cranial nerves 3-12 NL. negative: Strength at 5/5 X4 ext (4/5) Psych/Mental Status: Appropriate, Normal Affect, Cooperative - Assessment (1) Acute respiratory failure with hypoxia Acute J96.01 - ACUTE RESPIRATORY FAILURE WITH HYPOXIA Comment/Plan: HISTORY : Still with extensive pneumonia on chest x-ray. Clinically appear some better with less wheezing and less distress. Continue IV antibiotics, nebulizer treatments changed to Xopenex, and continue pulmonary toilet. Encourage spirometry and activity as tolerated. O2 supplementation. appears improved today. (2) Acute on chronic diastolic (congestive) heart failure Acute I50.33 - ACUTE ON CHRONIC DIASTOLIC (CONGESTIVE) HEART FAILURE Comment /Plan: Renal function moderately impaired. (3) Atrial fibrillation Chronic I48.91 - UNSPECIFIED ATRIAL FIBRILLATION Qualifiers: Atrial fibrillation type: chronic Qualified Code(s): I48.2 - Chronic atrial fibrillation Comment/Plan: Heart rate more in the 80-100 range, better control. Continue current medications. (4) Pneumonia Acute J18.9 - PNEUMONIA, UNSPECIFIED ORGANISM Qualifiers: Pneumonia type: aspiration pneumonia Aspiration pneumonia type: A Laterality: bilateral Lung location: lower lobe of lung Comment/Plan: Chest x-ray with multifocal pneumonia. Remains congested but with less wheezing. Change IV antibiotics- this is day 7 of IV Rocephin and Zithromax and there are persistent bilateral infiltrates; continue nebulizer treatments and pulmonary toilet. Change to Primaxin. (5) COPD exacerbation Acute J44.1 - CHRONIC OBSTRUCTIVE PULMONARY DISEASE W (ACUTE) EXACERBATION Comment/Plan: continue to wean IV steroids, changed nebulizer treatments to Xopenex for less cardiac irritation, will continue pulmonary toilet (6) Hypoxia Acute R09.02 - HYPOXEMIA (7) CKD (chronic kidney disease) stage 3, GFR 30-59 ml/min Chronic N18.3 - CHRONIC KIDNEY DISEASE, STAGE 3 (MODERATE) Comment/Plan: Maintain hydration, avoid any nephrotoxins. Monitor BMP (8) GERD (gastroesophageal reflux disease) Chronic K21.9 - GASTRO-ESOPHAGEAL REFLUX DISEASE WITHOUT ESOPHAGITIS Qualifiers: Esophagitis presence: without esophagitis Qualified Code(s): K21.9 - Gastro -esophageal reflux disease without esophagitis Comment/Plan: Continue PPI (9) Left bundle branch block Chronic I44.7 - LEFT BUNDLE-BRANCH BLOCK, UNSPECIFIED Comment/Plan: Chronic. Noted. (10) Diabetes mellitus Chronic E11.9 - TYPE 2 DIABETES MELLITUS WITHOUT COMPLICATIONS Qualifiers: Diabetes mellitus type: type 2 Diabetes mellitus complication status: with neurologic complications Diabetes mellitus complication detail: with unspecified neuropathy Diabetic retinopathy severity: D Proliferative retinopathy type: P Diabetes mellitus macular edema: D Diabetes mellitus fdc insulin use: with ad terminal makeup operator use Laterality: L Chronic kidney disease stage: C Qualified Code(s): E11.40 - Type 2 diabetes mellitus with diabetic neuropathy, unspecified; Z79.4 - residential (current) use of insulin Comment/Plan: Continue Lantus and ADA diet and sliding scale regular insulin (11) Physical deconditioning Acute R53.81 - OTHER MALAISE Comment/Plan: Continue PT/OT as tolerated; increase activity. Case Care Discussed with: Patient, Nursing Staff, Resource Management Education/Counseling Given To: Patient, Family Member Education/Counseling Given Regarding: Diagnosis, Treatment, Prognosis Total Time: 35 min Critical Care: No Couseling Time (>50% in counseling/coordination): No Code: 32390 (12+)
[2016-10-29] MEDS: ASCORBIC ACID 500 MG TAB PO SCH (12:24)
[2016-10-29] MEDS: VITAMIN E 400 UNITS/CAP CAP PO SCH (12:24)
[2016-10-29] MEDS: POTASSIUM CHLORIDE 20 MEQ TAB PO SCH (12:25)
[2016-10-29] MEDS: FERROUS SULFATE 324 MG TAB PO SCH ×2 (12:25→16:57)
[2016-10-29] MEDS: ENOXAPARIN 40 MG/0.4 ML PFS SQ SCH (16:57)
[2016-10-29] MEDS: TERAZOSIN 1 MG CAP PO SCH (22:11)
[2016-10-30] MEDS: DILTIAZEM 30 MG TAB PO SCH ×3 (00:06→11:14)
[2016-10-30] MEDS: IMIPENEM CILASTATIN 250 MG in D5W 100 ML IV SCH ×4 (05:00→20:50)
[2016-10-30] MEDS: ALPRAZOLAM 0.25 MG TAB PO SCH ×2 (05:13→14:11)
[2016-10-30] MEDS: GABAPENTIN 300 MG CAP PO SCH ×3 (05:13→21:19)
[2016-10-30] MEDS: PANTOPRAZOLE 40 MG TAB PO SCH (05:13)
[2016-10-30] MEDS: METOPROLOL TARTRATE 50 MG TAB PO SCH ×3 (05:13→21:20)
[2016-10-30] MEDS: MORPHINE 15 MG EXT REL TAB PO SCH ×3 (05:13→21:49)
[2016-10-30] MEDS: Diltiazem HCl 100 MG in D5W 100 ML IV SCH ×2 (05:14→10:13)
[2016-10-30] MEDS: METHYLPREDNISOLONE 40 MG/1 ML VIAL IV SCH ×2 (05:14→17:53)
[2016-10-30] MEDS: REGULAR INSULIN 100 UNITS/ML - 3 ML VIAL SQ SCH ×4 (06:25→21:21)
[2016-10-30] MEDS: LEVALBUTEROL 1.25 MG in 3 ML NEB NEB SCH ×3 (09:00→23:32)
[2016-10-30] MEDS: IPRATROPIUM 0.02% 2.5 ML NEB NEB SCH ×3 (09:01→23:27)
[2016-10-30] MEDS: TAMSULOSIN HCL 0.4 MG CAP PO SCH (09:21)
[2016-10-30] MEDS: DUTASTERIDE 0.5 MG CAP PO SCH (09:22)
[2016-10-30] MEDS: Aspirin (Orange Enteric Coated) 325 mg tab PO SCH (09:22)
[2016-10-30] MEDS: FUROSEMIDE 40 MG/4 ML VIAL IV SCH ×2 (09:22→16:34)
[2016-10-30] MEDS: GUAIFENESIN 600 MG LA TAB PO SCH ×2 (09:23→21:19)
[2016-10-30] MEDS: GLARGINE INSULIN (LANTUS) 100 UNITS/ML PEN SQ SCH (09:54)
--- NOTE | 2016-10-30 10:17 | GENMEDPROG ---
Currently: Reports: Cough, Wheezing, MAYNARD, SOB. Denies: Nausea and Vomiting, Abdominal Pain, Chest Pain DVT Prophylaxis: Yes - Physical Examination Vital Signs and I&O: Last Vital Signs Temp 98.2 F 10/30/16 07:32 Pulse 102 10/30/16 09:55 Resp 18 10/30/16 07:32 BP 119/70 10/30/16 09:55 Pulse Ox 95 10/30/16 08:00 Oxygen Pulse Oxygen Saturation 95 O2 Device Nasal Cannula Oxygen Flow Rate 1 Fraction of Inspired Oxygen ( FIO2) Intake & Output 10/27/16 10/28/16 10/29/16 10/30/16 23:59 23:59 23:59 23:59 Intake Total 1739 1061 1551 868 Output Total 2794 4010 3100 1200 Balance -164 -3439 -1549 -332 Patient's weight 89.312 kg 89.675 kg 89.811 kg 90.322 kg General: Cooperative, No acute distress, Weakness HEENT: Normal, PERRLA, EOMI, Anicteric Sclera, Mucous membr. moist/pink Neck: Full range of motion, Normal Trachea alignment, Normal inspection, No Masses palpable, No Thyromegaly palpable Lymphatics: Normal. negative: Adenopathy Respiratory: Diminished, Rales (mild) Cardiovascular: Regular rate and rhythm, Normal S1, Normal S2 GI: Normal bowel sounds, Soft, Non tender, No masses Extremities/Musculoskeletal: Normal pulses, Tenderness, Swelling, Edema, DJD, FROM Skin: Warm,Dry and Intact, No rashes, No breakdown, No significant lesion Neurological: Normal tone, Cranial nerves 3-12 NL, Drowsy, Lethargy. negative: Strength at 5/5 X4 ext (4/5) Psych/Mental Status: Cooperative, Drowsy, Lethargic Lab/DI/Studies Reviewed: Laboratory Tests 10/30/16 10/30/16 10/30/16 05:42 10:27 10:27 WBC 6.1 Hgb 9.2 L Hct 27.4 L Plt Count 142 Sodium 129 L Potassium 3.6 Chloride 91 L Carbon Dioxide 29 Anion Gap 13 BUN 75 H Creatinine 1.60 H Estimated GFR (MDRD) 41 L Glucose 183 H POC Capillary Glucose 204 H Calculated Osmolality 276 Calcium 8.0 L - Assessment (1) Acute respiratory failure with hypoxia Acute J96.01 - ACUTE RESPIRATORY FAILURE WITH HYPOXIA Comment/Plan: HISTORY : Still with extensive pneumonia on chest x-ray. Clinically appear some better with less wheezing and less distress. Continue IV antibiotics, nebulizer treatments changed to Xopenex, and continue pulmonary toilet. Encourage spirometry and activity as tolerated. O2 supplementation. appears improved today. (2) Acute on chronic diastolic (congestive) heart failure Acute I50.33 - ACUTE ON CHRONIC DIASTOLIC (CONGESTIVE) HEART FAILURE Comment /Plan: Renal function improving slowly. (3) Atrial fibrillation Chronic I48.91 - UNSPECIFIED ATRIAL FIBRILLATION Qualifiers: Atrial fibrillation type: chronic Qualified Code(s): I48.2 - Chronic atrial fibrillation Comment/Plan: Heart rate more in the 80-100 range, better control. Continue current medications. (4) Pneumonia Acute J18.9 - PNEUMONIA, UNSPECIFIED ORGANISM Qualifiers: Pneumonia type: aspiration pneumonia Aspiration pneumonia type: A Laterality: bilateral Lung location: lower lobe of lung Comment/Plan: Chest x-ray with multifocal pneumonia. Remains congested but with less wheezing. Change IV antibiotics- this is day 7 of IV Rocephin and Zithromax and there are persistent bilateral infiltrates; continue nebulizer treatments and pulmonary toilet. Change to Primaxin. (5) COPD exacerbation Acute J44.1 - CHRONIC OBSTRUCTIVE PULMONARY DISEASE W (ACUTE) EXACERBATION Comment/Plan: continue to wean IV steroids, changed nebulizer treatments to Xopenex for less cardiac irritation, will continue pulmonary toilet (6) Hypoxia Acute R09.02 - HYPOXEMIA Comment/Plan: Monitor O2 sats- less wheezing today. (7) CKD (chronic kidney disease) stage 3, GFR 30-59 ml/min Chronic N18.3 - CHRONIC KIDNEY DISEASE, STAGE 3 (MODERATE) Comment/Plan: Maintain hydration, avoid any nephrotoxins. Monitor BMP (8) GERD (gastroesophageal reflux disease) Chronic K21.9 - GASTRO-ESOPHAGEAL REFLUX DISEASE WITHOUT ESOPHAGITIS Qualifiers: Esophagitis presence: without esophagitis Qualified Code(s): K21.9 - Gastro -esophageal reflux disease without esophagitis Comment/Plan: Continue PPI (9) Left bundle branch block Chronic I44.7 - LEFT BUNDLE-BRANCH BLOCK, UNSPECIFIED Comment/Plan: Chronic. Noted. (10) Diabetes mellitus Chronic E11.9 - TYPE 2 DIABETES MELLITUS WITHOUT COMPLICATIONS Qualifiers: Diabetes mellitus type: type 2 Diabetes mellitus complication status: with neurologic complications Diabetes mellitus complication detail: with unspecified neuropathy Diabetic retinopathy severity: D Proliferative retinopathy type: P Diabetes mellitus macular edema: D Diabetes mellitus correction insulin use: with correction use Laterality: L Chronic kidney disease stage: C Qualified Code(s): E11.40 - Type 2 diabetes mellitus with diabetic neuropathy, unspecified; Z79.4 - correction (current) use of insulin Comment/Plan: Continue Lantus and ADA diet and sliding scale regular insulin (11) Physical deconditioning Acute R53.81 - OTHER MALAISE Comment/Plan: Continue PT/OT as tolerated; increase activity.
--- NOTE | 2016-10-30 10:20 | PCM.CARD ---
- Subjective Reason for visit: Follow up chest pain Sitting in chair and eating breakfast feeling much better. Denies have any chest pain. Had a good night. Still coughing. Vital Signs: Last Vital Signs Temp 98.2 F 10/30/16 07:32 Pulse 102 10/30/16 09:55 Resp 18 10/30/16 07:32 BP 119/70 10/30/16 09:55 Pulse Ox 95 10/30/16 08:00 PE: General Appearance: Well developed. Well nourished. In no acute distress. Lungs: Chest was not overinflated. Bilateral rhonchi Cardiovascular: Jugular Venous Distention: JVD not increased. Heart Rate And Rhythm: Irregularly irregular. Heart Sounds: Normal. Murmurs: No murmurs were heard. Carotid Arteries: Carotid pulses were normal. No bruit in the carotid artery. Edema: Not present. Lower extremities pulses normal (including femoral popliteal and dorsalis pedis) . Musculoskeletal System: General/bilateral: No cyanosis of the fingers. Neurological: Oriented to time, place, and person. Nails: No clubbing of the fingernails. Lab/DI Results Reviewed: Laboratory Results - last 24 hr 10/29/16 10/29/16 10/29/16 10:36 16:52 22:09 POC Capillary Glucose 268 H 244 H 263 H 10/30/16 05:42 POC Capillary Glucose 204 H - Assessment/Plan (1) Chest pain Chronic R07.9 - CHEST PAIN, UNSPECIFIED Present on Admission: Yes C I Comment/Plan: Denies having any, biochemical markers negative. (2) Acute respiratory failure with hypoxia Acute J96.01 - ACUTE RESPIRATORY FAILURE WITH HYPOXIA Present on Admission: Yes (3) Hypertensive heart disease with CHF Acute I11.0 - HYPERTENSIVE HEART DISEASE WITH HEART FAILURE Present on Admission: Yes Comment/Plan: Blood pressure actually on the lower side. Will continue present management. (4) Pneumonia Acute J18.9 - PNEUMONIA, UNSPECIFIED ORGANISM Present on Admission: Yes aspiration pneumonia A bilateral lower lobe of lung Comment/Plan: Slow but improvement. On appropriate medications. (5) Atrial fibrillation Chronic I48.91 - UNSPECIFIED ATRIAL FIBRILLATION Present on Admission: Yes chronic I48.2 - Chronic atrial fibrillation Comment/Plan: Not anticoagulated secondary to history of GI bleed, heart rate appears to be controlled will discontinue intravenous Cardizem and put on oral AV blocking agents. 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
[2016-10-30 10:39] LABS: MPV 8.7 fL (7.4-10.4)
[2016-10-30 10:56] LABS: BLOOD UREA NITROGEN 75 MG/DL (9-20); CALCULATED OSMOLALITY 276 MOs/Kg (270-290); CHLORIDE 91 mEq/L (98-107); GLUCOSE 183 MG/DL (70-99); SODIUM LEVEL 129 mEq/L (137-146)
[2016-10-30] MEDS: ASCORBIC ACID 500 MG TAB PO SCH (11:14)
[2016-10-30] MEDS: FERROUS SULFATE 324 MG TAB PO SCH ×2 (11:14→17:53)
[2016-10-30] MEDS: VITAMIN E 400 UNITS/CAP CAP PO SCH (11:14)
[2016-10-30] MEDS: POTASSIUM CHLORIDE 20 MEQ TAB PO SCH (11:14)
[2016-10-30] MEDS ORDERED: DILTIAZEM 30 MG TAB PO ONE (14:04)
--- NOTE | 2016-10-30 15:56 | CAPUEKG ---
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
[2016-10-30] MEDS ORDERED: ALPRAZOLAM 0.25 MG TAB PO PRN (16:33)
[2016-10-30] MEDS: ENOXAPARIN 40 MG/0.4 ML PFS SQ SCH (17:53)
[2016-10-30] MEDS: TERAZOSIN 1 MG CAP PO SCH (21:19)
[2016-10-30] MEDS: DILTIAZEM 60 MG TAB PO SCH (21:20)
[2016-10-30] MEDS ORDERED: DILTIAZEM 30 MG TAB PO SCH (22:00)
[2016-10-31] MEDS: IMIPENEM CILASTATIN 250 MG in D5W 100 ML IV SCH ×3 (03:11→15:14)
[2016-10-31] MEDS: PANTOPRAZOLE 40 MG TAB PO SCH (05:20)
[2016-10-31] MEDS: METOPROLOL TARTRATE 50 MG TAB PO SCH ×2 (05:20→13:05)
[2016-10-31] MEDS: DILTIAZEM 60 MG TAB PO SCH ×2 (05:20→13:05)
[2016-10-31] MEDS: GABAPENTIN 300 MG CAP PO SCH ×2 (05:20→13:05)
[2016-10-31] MEDS: METHYLPREDNISOLONE 40 MG/1 ML VIAL IV SCH (05:20)
[2016-10-31] MEDS: REGULAR INSULIN 100 UNITS/ML - 3 ML VIAL SQ SCH ×2 (06:44→11:27)
[2016-10-31] MEDS: LEVALBUTEROL 1.25 MG in 3 ML NEB NEB SCH ×2 (08:14→15:14)
[2016-10-31] MEDS: IPRATROPIUM 0.02% 2.5 ML NEB NEB SCH (08:14)
[2016-10-31] MEDS: POTASSIUM CHLORIDE 20 MEQ TAB PO SCH (08:21)
[2016-10-31] MEDS: Aspirin (Orange Enteric Coated) 325 mg tab PO SCH (08:21)
[2016-10-31] MEDS: VITAMIN E 400 UNITS/CAP CAP PO SCH (08:21)
[2016-10-31] MEDS: ASCORBIC ACID 500 MG TAB PO SCH (08:21)
[2016-10-31] MEDS: FUROSEMIDE 40 MG/4 ML VIAL IV SCH ×2 (08:21→15:14)
[2016-10-31] MEDS: GUAIFENESIN 600 MG LA TAB PO SCH (08:22)
[2016-10-31] MEDS: TAMSULOSIN HCL 0.4 MG CAP PO SCH (08:22)
[2016-10-31] MEDS: GLARGINE INSULIN (LANTUS) 100 UNITS/ML PEN SQ SCH (08:23)
--- NOTE | 2016-10-31 08:39 | PCM.CARD ---
- Subjective Reason for visit: Follow up congestive heart failure. Atypical chest pain. Doing fine improved quite significantly. Denies having shortness of breath chest pain. Vital Signs: Last Vital Signs Temp 98.4 F 10/31/16 07:48 Pulse 102 10/31/16 08:00 Resp 20 10/31/16 07:48 BP 156/86 10/31/16 07:48 Pulse Ox 94 10/31/16 08:00 PE: General Appearance: Well developed. Well nourished. In no acute distress. Lungs: Chest was not overinflated. Still bilateral rhonchi present. Cardiovascular: Jugular Venous Distention: JVD not increased. Heart Rate And Rhythm: Normal. Heart Sounds: Normal. Murmurs: No murmurs were heard. Carotid Arteries: Carotid pulses were normal. No bruit in the carotid artery. Edema: Not present. Lower extremities pulses normal (including femoral popliteal and dorsalis pedis) . Musculoskeletal System: General/bilateral: No cyanosis of the fingers. Neurological: Oriented to time, place, and person. Nails: No clubbing of the fingernails. Lab/DI Results Reviewed: Laboratory Results - last 24 hr 10/30/16 10/30/16 10/30/16 10:27 10:27 11:19 WBC 6.1 RBC 2.91 L Hgb 9.2 L Hct 27.4 L MCV 94 MCH 31.4 MCHC 33.4 RDW 14.0 Plt Count 142 MPV 8.7 Sodium 129 L Potassium 3.6 Chloride 91 L Carbon Dioxide 29 Anion Gap 13 BUN 75 H Creatinine 1.60 H Estimated GFR (MDRD) 41 L Glucose 183 H POC Capillary Glucose 261 H Calculated Osmolality 276 Calcium 8.0 L 10/30/16 10/30/16 10/31/16 16:28 21:14 05:38 WBC RBC Hgb Hct MCV MCH MCHC RDW Plt Count MPV Sodium Potassium Chloride Carbon Dioxide Anion Gap BUN Creatinine Estimated GFR (MDRD) Glucose POC Capillary Glucose 372 H 367 H 165 H Calculated Osmolality Calcium - Assessment/Plan (1) Chest pain Chronic R07.9 - CHEST PAIN, UNSPECIFIED Present on Admission: Yes C I Comment/Plan: Denies having any. (2) Acute respiratory failure with hypoxia Acute J96.01 - ACUTE RESPIRATORY FAILURE WITH HYPOXIA Present on Admission: Yes Comment/Plan: Gradual however slow improvement. (3) Hypertensive heart disease with CHF Acute I11.0 - HYPERTENSIVE HEART DISEASE WITH HEART FAILURE Present on Admission: Yes Comment/Plan: Stable on appropriate medications which I will continue. (4) Pneumonia Acute J18.9 - PNEUMONIA, UNSPECIFIED ORGANISM Present on Admission: Yes aspiration pneumonia A bilateral lower lobe of lung Comment/Plan: On antibiotic oxygen support. Will continue present management. Improving however slowly. (5) Atrial fibrillation Chronic I48.91 - UNSPECIFIED ATRIAL FIBRILLATION Present on Admission: Yes chronic I48.2 - Chronic atrial fibrillation Comment/Plan: Rate sometimes is still excessive however that happen usually when patient is trying to do some exercise. Not anticoagulated because of anemia and multiple problems in the past. (6) Diabetes mellitus Chronic E11.9 - TYPE 2 DIABETES MELLITUS WITHOUT COMPLICATIONS Present on Admission: Yes type 2 with neurologic complications with unspecified neuropathy D P D with shelter use L C E11.40 - Type 2 diabetes mellitus with diabetic neuropathy, unspecified; Z79.4 - shelter (current) use of insulin Comment/Plan: Follow up by Internal Medicine team. - Plan Overall patient is improving however slowly. He is still in atrial fibrillation with rate sometimes excessive however adequate to his clinical scenariol continue present management.
[2016-10-31 10:05] VITALS: TEMP 98.4
[2016-10-31] MEDS: DUTASTERIDE 0.5 MG CAP PO SCH (10:36)
[2016-10-31] MEDS: FERROUS SULFATE 324 MG TAB PO SCH (11:28)
[2016-10-31 12:01] VITALS: BP 114/53; TEMP 97.9
[2016-10-31 13:16] VITALS: PULSE 91
--- NOTE | 2016-10-31 13:30 | PCM.DCS92 ---
- Final/Secondary Discharge Diagnosis (1) Acute respiratory failure with hypoxia Acute J96.01 - ACUTE RESPIRATORY FAILURE WITH HYPOXIA Present on Admission: Yes Comment: Extensive pneumonia on chest x-ray. Clinically appear some better with less wheezing and less distress. completed 10 days IV antibiotics; nebulizer treatments changed to Xopenex, and continue pulmonary toilet. Encourage spirometry and activity as tolerated. O2 supplementation. Appears improved today. (2) Acute on chronic diastolic (congestive) heart failure Acute I50.33 - ACUTE ON CHRONIC DIASTOLIC (CONGESTIVE) HEART FAILURE Present on Admission: Yes Comment: Renal function improving slowly. (3) Atrial fibrillation Chronic I48.91 - UNSPECIFIED ATRIAL FIBRILLATION Present on Admission: Yes chronic I48.2 - Chronic atrial fibrillation Comment: Heart rate more in the 80-100 range, better control. Continue current medications. (4) Pneumonia Acute J18.9 - PNEUMONIA, UNSPECIFIED ORGANISM Present on Admission: Yes aspiration pneumonia A bilateral lower lobe of lung Comment: Chest x-ray with multifocal pneumonia. Continues to have some rales, but no longer wheezing. Completed 10 days of IV antibiotics- 7 of IV Rocephin and Zithromax and then changed to Primaxin. Patient has improved, but will discharge home with additional antibiotics PO. (5) COPD exacerbation Acute J44.1 - CHRONIC OBSTRUCTIVE PULMONARY DISEASE W (ACUTE) EXACERBATION Present on Admission: Yes Comment: continue to wean steroids, changed nebulizer treatments to Xopenex for less cardiac irritation, will continue pulmonary toilet (6) Hypoxia Acute R09.02 - HYPOXEMIA Present on Admission: Yes Comment: Monitor O2 sats- not wheezing today. (7) CKD (chronic kidney disease) stage 3, GFR 30-59 ml/min Chronic N18.3 - CHRONIC KIDNEY DISEASE, STAGE 3 (MODERATE) Present on Admission: Yes Comment: creatinine=1.6, eGFR=41. Maintain hydration, avoid any nephrotoxins. Monitor BMP (8) GERD (gastroesophageal reflux disease) Chronic K21.9 - GASTRO-ESOPHAGEAL REFLUX DISEASE WITHOUT ESOPHAGITIS Present on Admission: Yes without esophagitis K21.9 - Gastro-esophageal reflux disease without esophagitis Comment: Continue PPI (9) Left bundle branch block Chronic I44.7 - LEFT BUNDLE-BRANCH BLOCK, UNSPECIFIED Comment: Chronic. Noted. 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 Discharge Disposition: [facility] Facility Discharge Condition: Serious Cognitive Discharge Status: Unimpaired Fuctional Discharge Status: Walker Assistance, Fall Risk, Inability to drive due to severe medical illness, Deconditioning, Ambulatory Dysfunction, Dyspnea with ambulation Physician Follow up/Referrals: Cinthya Miller PA [Primary Care Provider] - F/U Facility Physician Home Medications / New Prescriptions: New Acetaminophen Tablet [TYLENOL Tablet] 650 mg PO Q6H PRN #60 tablet PRN Reason: Mild Pain Or Fever Above 100.4 Alprazolam [Xanax] 0.25 mg PO Q8H PRN #60 tablet PRN Reason: Anxiety Aspirin (OrangeEnteric Coated) [Ecotrin] 325 mg PO DAILYWM #100 tablet Benzonatate [Tessalon] 100 mg PO TID PRN #100 capsule PRN Reason: Cough - First Option Diltiazem HCl [Cardizem Cd] 240 mg PO DAILY #30 cap Ipratropium [Atrovent] 2.5 ml NEB RTQ8 #100 nebu Levalbuterol [Xopenex 1.25 mg] 1.25 mg NEB RTQ8 #100 nebu Nitroglycerin Sublingual Tab [NTG (NitroStat Sublingual Tab)] 0.4 mg SL Q5MIN PRN #30 tablet PRN Reason: Chest Pain Or Discomfort Prednisone [Sterapred Ds] 10 mg PO DIR #48 pack Continue Gabapentin [Neurontin] 300 mg PO TID Terazosin [Hytrin] 1 mg PO HS POTASSIUM CHLORIDE Tablet [K-DUR 20 mEq Tablet*] 20 meq PO DAILY HydrALAZINE (Cardiovascular) [Apresoline] 50 mg PO QID Ferrous Sulfate [Iron] 325 mg PO BID Fluticasone/Salmeterol [Advair 500-50 Diskus] 1 inh INH BID PRN PRN Reason: Shortness Of Breath CloNIDine (Antihypertensive) [Catapres] 0.3 mg PO BID Pantoprazole Sodium [Protonix] 40 mg PO DAILY Omeprazole 20 mg PO BID Tamsulosin HCl [Flomax] 0.4 mg PO DAILY Metoprolol Tartrate [Lopressor] 75 mg PO BID Insulin Aspart [Novolog] 0 units SQ .SLIDING SCALE WMEAL Furosemide [Lasix] 40 mg PO BID #120 tab Dutasteride [Avodart] 0.5 mg PO DAILY #30 capsule Morphine Sulfate [Morphine Sulfate ER] 15 mg PO TID Insulin Glargine,Hum.rec.anlog [Toujeo Solostar] 12 unit SQ QAM Ascorbic Acid [Vitamin C] 1,000 mg PO DAILY Vitamin E Mixed [Vitamin E] 1,000 unit PO DAILY Discontinued Lorazepam 0.5 mg PO QHS PRN PRN Reason: Sleep Or Insomnia Levofloxacin [Levaquin] 750 mg PO DAILY O2 Device: Nasal Cannula Oxygen Flow Rate: 2 Diet at Discharge: Heart Healthy, Other (thickened liquids) Activity: As Tolerated, No Driving Call Office For: Worsening Symptoms Discontinue use of:: Alcohol, All Types of Tobacco - DC Summary Notes Hospital Course Note:: Discharge summary on patient named ALESHIA LEUNG admitted to [facility] on 10/23/16 by Arya Friedman MD. Date of discharge is []. Code: 40206 (>30min.) - Physical Exam Vital Signs: Last Vital Signs Temp 97.9 F 10/31/16 12:00 Pulse 91 10/31/16 13:15 Resp 18 10/31/16 12:00 BP 114/53 L 10/31/16 12:00 Pulse Ox 93 10/31/16 12:00 Oxygen Pulse Oxygen Saturation 93 O2 Device Nasal Cannula Oxygen Flow Rate 2 Fraction of Inspired Oxygen ( FIO2) Constitutional: No apparent distress, Alert, Other (He is comfortable today at rest head of the bed elevated 30 and is alert but very hard of hearing and difficult to communicate with, not in distress) Oriented to: Time, Person, Place - HEENT Head: Normal (He has moderate neck vein distention no bruit thyromegaly) Eye: Normal Oropharynx: Normal Tympanic Membrane: Dull, Retracted ENT EAC: Normal TMJ: Normal Nose: No Symptoms Reported - Respiratory/Cardiovascular Respiratory: Rales (mild) Cardiovascular: Irregular - GI Auscultation: Normal (Soft nondistended nontender) Palpation: Normal Tenderness: Non tender Rectal Exam: Deferred - Musculoskeletal Back: No Palpable Step-off Extremities: Pedal Pulse (NORMAL), Radial Pulse (NORMAL). negative: Calf Tenderness, Clubbing - Integumentary Skin: Warm, Dry Lymphatics: Normal. negative: Adenopathy - Neurologic Memory Impaired: Short-term Motor Function: Abnormal (ARTHRITIC CHANGES LIMIT AMBULATION) Cranial Nerve: 8 (MARKED HEARING IMPAIRMENT) Cerebellar: Ataxia Mood Description: Anxious Thought: Coherent Perception: Normal
[2016-10-31] MEDS ORDERED: VARIBAR THIN 40% BARIUM 250 ML ONE (13:54)
== END 2016-10-31 16:32 | DRG 177 ==
LOC: ED 20:12 → PCU 23:53
PROVIDERS: ADMIT Internal Medicine; ATTEND Family Medicine
PROC: 039B3ZZ Drainage of Right Radial Artery, Percutaneous Approach (ICD-10-PCS; principal; 2016-10-23)
DX: J69.0 Pneumonitis due to inhalation of food and vomit (principal); J96.01 Acute respiratory failure with hypoxia; I50.33 Acute on chronic diastolic (congestive) heart failure; J44.1 Chronic obstructive pulmonary disease with (acute) exacerbation; J44.0 Chronic obstructive pulmonary disease with (acute) lower respiratory infection; I24.8 Other forms of acute ischemic heart disease; I13.0 Hypertensive heart and chronic kidney disease with heart failure and stage 1 through stage 4 chronic kidney disease, or unspecified chronic kidney disease; I48.2 Chronic atrial fibrillation; K21.9 Gastro-esophageal reflux disease without esophagitis; I44.7 Left bundle-branch block, unspecified; E11.40 Type 2 diabetes mellitus with diabetic neuropathy, unspecified; Z79.4 Long term (current) use of insulin; R53.81 Other malaise; E78.00 Pure hypercholesterolemia, unspecified; Z87.01 Personal history of pneumonia (recurrent); Z86.711 Personal history of pulmonary embolism; N40.0 Benign prostatic hyperplasia without lower urinary tract symptoms; M19.90 Unspecified osteoarthritis, unspecified site; F03.90 Unspecified dementia, unspecified severity, without behavioral disturbance, psychotic disturbance, mood disturbance, and anxiety; F41.9 Anxiety disorder, unspecified; Z88.0 Allergy status to penicillin; Z79.899 Other long term (current) drug therapy; D64.9 Anemia, unspecified; I35.0 Nonrheumatic aortic (valve) stenosis; N18.3 Chronic kidney disease, stage 3 (moderate)
CPT/HCPCS: 36415; 36600; 71010; 71020; 71275; 80048; 80053; 81001; 82043; 82550; 82553; 82803; 82962; 83036; 83605; 83735; 83880; 84443; 84484; 85007; 85025; 85027; 85379; 85610; 85730; 87040; 87086; 93005; 94640; 96365; 96366; 96372; 96375; 97161; 99284; A9698; G0237; J0456; J0696; J0743; J1200; J1650; J1940; J2270; J2405; J2550; J2920; J2930; J3490; J7060; J7070; J7614; J7620